=== PATIENT | male | born 1945 | race Caucasian/White ===

== ENCOUNTER 2018-07-23 08:53 | Day surgery (SDC) | payer MEDICARE, OTHER ==
[~2018-07-23] VITALS: Ht 180.3 cm; Wt 66.2 kg
[~2018-07-23 08:53] MED LIST: AMOX1TAB61 PO; ASPI81TA50 PO; FINA5TAB PO; GLIM1TAB2 PO; HYDR-2761 PO; HYDROmorphone 2 MG/ML VIAL IV PRN; INSU100I13 SQ; ISOS30TA4 PO; LEVO50TA5 PO; LIDOCAINE 1% PF 2 ML VIAL. ID PRN; LIDOCAINE 2% PF Vial for OR 5 ML VIAL. ONE; METO50TA29 PO; MORPHINE SULFATE 4 MG/ML VIAL. IV PRN; ONDANSETRON PF 4 MG/2 ML VIAL. IV PRN; PROCHLORPERAZINE 10 MG/2 ML VIAL. IV PRN; PROPOFOL 0 ML IV ONE; SIMV40TA3 PO; TAMS0.4C97 PO; fentaNYL PF VIAL 100 MCG/2 ML VIAL IV PRN
[2018-07-23] MEDS: IV RINGERS,LACTATED 1000ML 1,000 ML IV SCH (09:34)
[2018-07-23] MEDS ORDERED: LIDOCAINE 2% PF Vial for OR 5 ML VIAL. ONE (10:29)
[2018-07-23] MEDS ORDERED: PROPOFOL 20 ML IV ONE (10:29)
[2018-07-23] MEDS ORDERED: DEXAMETHASONE SOD PHOS 20 MG/5 ML VIAL. ONE (10:30)
[2018-07-23] MEDS ORDERED: ONDANSETRON PF 4 MG/2 ML VIAL. ONE (10:30)
[2018-07-23] MEDS ORDERED: fentaNYL PF VIAL 100 MCG/2 ML VIAL ONE (10:33)
[2018-07-23] MEDS ORDERED: MIDAZOLAM HCL/PF 2 MG/2 ML VIAL. ONE (10:33)
[2018-07-23] MEDS: CIPROFLOXACIN 400MG PREMIX 200 ML IV PRN (10:49)
[2018-07-23] MEDS ORDERED: SEVOFLURANE 31 TO 60 MINUTES. IH ONE (11:49)
[2018-07-23] MEDS: LIDOCAINE 2% JELLY 6ML IN APPLICATOR. MM ONE (12:05)
--- NOTE | 2018-07-23 12:16 | PDOC4 ---
OPERATIVE NOTE Date: Date: Jul 23, 2018 Pre-Op Diagnosis: bph w obstruction Post-Op Diagnosis: same Procedure Performed: cysto, laser PVP prostate Surgeon: Anesthesia Type: ga Blood Loss: 5ml Findings: trilobar hypertrophy, 2cm prostate fossa length Complications: none evident SPRING MACK MD Jul 23, 2018 12:15
--- NOTE | 2018-07-23 12:20 | DISCH ---
DISCHARGE INSTRUCTIONS Condition on Discharge Condition on Discharge: Stable Activity After Discharge Activity Instructions for Disc: Activity as tolerated Driving Instructions after Dis: Other, see below (dont drive if taking narcotics) Weight Bearing Status after Di: No restrictions Diet after Discharge Diet after Discharge: Cardiac, Regular, Diabetic No Calorie Level Contacting the after DC Call your doctor for: If your condition worsens Follow-Up Follow up with: dr zuniga in 3 weeks Treatment/Equipment after DC Comment: cath care at home SPRING ZUNIGA MD Jul 23, 2018 12:20
[2018-07-23] MEDS ORDERED: PHEN-318 PO (12:24)
[2018-07-23] MEDS ORDERED: LIDOCAINE 2% JELLY 6ML IN APPLICATOR. ONE ×2 (12:26→12:27)
[2018-07-23] MEDS ORDERED: HYDR-3164 PO (12:44)
--- NOTE | 2018-07-23 12:56 | OP ---
DATE OF SURGERY: PREOPERATIVE DIAGNOSIS: Benign prostatic hypertrophy with obstruction. POSTOPERATIVE DIAGNOSIS: Benign prostatic hypertrophy with obstruction. PROCEDURE: Cystoscopy with GreenLight photo vaporization of the prostate. SURGEON: Deysi Freeman M.D. ANESTHESIA: General. CONDITION: Stable. COMPLICATIONS: None. ESTIMATED BLOOD LOSS: 5 mL. FINDINGS: Tri-lobar hypertrophy, 2 cm prostate fossa length. DESCRIPTION OF PROCEDURE: The patient was taken back to the procedure room and placed under general anesthesia in supine position per the protocol. He was prepped and draped in the usual sterile fashion in dorsal lithotomy position. Time-out was performed. SCDs were attached. IV antibiotics were administered. A 21-Welsh rigid cystoscope was advanced per urethra into the bladder. There was no evidence of anterior or posterior urethra stricture disease. He had tri- lobar hypertrophy with a 2 cm prostate length. There was no evidence of foreign body, stone or tumor. He did have trabeculations noted in the bladder. A 23 continuous flow cystoscope was advanced into the bladder with a working element. A MoXy XPS laser fiber was obtained, 180 rodriguez, and was parked at the bladder neck, 5-7 o'clock positions were marked. Same was done distally proximal to verumontanum. First, I took down the lateral lobes and then the median lobe. At the end of the procedure, the patient had a wide open prostate fossa in the shape of a wide barrel. Pinpoint hemostasis was obtained and a 20-Welsh catheter was placed into the bladder. Hand irrigation revealed no obstructing clots, with no significant hematuria. The patient was awakened and taken to PACU in stable condition. Of note, he had two syringes of urethral lidocaine. The patient will be discharged home today. He will discontinue catheter at home on Saturday. Follow up with me in 3-4 weeks. DEYSI FREEMAN MD DR: MERCY/claudine JOB#: [id number] / [id number]
[2018-07-23 13:40] VITALS: BP 124/76
== END 2018-07-23 13:40 | disposition home or self-care (01) ==
LOC: SURG 08:53
PROVIDERS: ATTEND Urology
DX: N40.1 Benign prostatic hyperplasia with lower urinary tract symptoms (principal); N13.8 Other obstructive and reflux uropathy; N32.89 Other specified disorders of bladder; E11.9 Type 2 diabetes mellitus without complications
CPT/HCPCS: 52648; 82962; A7015; J0744; J1100; J2001; J2250; J2405; J2704; J3010; J7120

== ENCOUNTER 2018-12-25 06:31 | Inpatient (IN) | payer MEDICARE, OTHER ==
[2018-12-25] VITALS (12 sets, daily range): BP systolic 117–140; BP diastolic 70–87
[~2018-12-25] VITALS: Ht 180.3 cm; Wt 70.8 kg
[~2018-12-25 06:31] MED LIST changes: +HYDR-3164 PO; -HYDROmorphone 2 MG/ML VIAL IV PRN; -LIDOCAINE 1% PF 2 ML VIAL. ID PRN; -LIDOCAINE 2% PF Vial for OR 5 ML VIAL. ONE; -MORPHINE SULFATE 4 MG/ML VIAL. IV PRN; -ONDANSETRON PF 4 MG/2 ML VIAL. IV PRN; +PHEN-318 PO; -PROCHLORPERAZINE 10 MG/2 ML VIAL. IV PRN; -PROPOFOL 0 ML IV ONE; -fentaNYL PF VIAL 100 MCG/2 ML VIAL IV PRN
[2018-12-25] MEDS ORDERED: BUPIVAC MPF-EPI 0.5%-1:200000 30 ML VIAL. ONE (07:16)
[2018-12-25] MEDS ORDERED: cefOXitin SODIUM IV Push 2 GM VIAL. IVP SCH (08:00)
[2018-12-25] MEDS ORDERED: IV RINGERS,LACTATED 1000ML 1,000 ML IV SCH (08:02)
[2018-12-25] MEDS ORDERED: ONDANSETRON PF 4 MG/2 ML VIAL. ONE (08:13)
[2018-12-25] MEDS ORDERED: LIDOCAINE 2% PF 5 ML VIAL. ONE (08:13)
[2018-12-25] MEDS ORDERED: DEXAMETHASONE SOD PHOS 20 MG/5 ML VIAL. ONE (08:13)
[2018-12-25] MEDS ORDERED: SUCCINYLCHOLINE 200 MG/10 ML VIAL. ONE (08:13)
[2018-12-25] MEDS ORDERED: ROCURONIUM 50 MG/5 ML VIAL. ONE (08:13)
[2018-12-25] MEDS ORDERED: FAMOTIDINE 20 MG/2 ML VIAL ONE (08:13)
[2018-12-25] MEDS ORDERED: PROPOFOL 20 ML IV ONE (08:13)
[2018-12-25] MEDS ORDERED: fentaNYL PF VIAL 100 MCG/2 ML VIAL ONE ×2 (08:14→12:12)
[2018-12-25] MEDS ORDERED: HYDROmorphone 2 MG/ML VIAL IV PRN (08:15)
[2018-12-25] MEDS ORDERED: LIDOCAINE 1% PF 2 ML VIAL. ID PRN (08:15)
[2018-12-25] MEDS ORDERED: MORPHINE SULFATE 2 MG/ML VIAL. IV PRN (08:15)
[2018-12-25] MEDS ORDERED: cefOXitin SODIUM IV Push 2 GM VIAL. IVP ONE (08:15)
[2018-12-25] MEDS ORDERED: ONDANSETRON PF 4 MG/2 ML VIAL. IV PRN ×2 (08:15→12:15)
[2018-12-25] MEDS ORDERED: fentaNYL PF VIAL 100 MCG/2 ML VIAL IV PRN ×2 (08:15)
[2018-12-25] MEDS ORDERED: PROCHLORPERAZINE 10 MG/2 ML VIAL. IV PRN (08:15)
--- NOTE | 2018-12-25 08:16 | PDOC2 ---
CONSULT Date of Consult Date of Consult DATE: 12/25/18 TIME: 08:09 Reason for Consult Reason for Consult: Pneumoperitoneum Referring Physician Referring Physician: Chidi Identification/Chief Complaint Chief Complaint abd pain Source Source: Chart review, Patient History of Present Illness Reason for Visit: 73 yo M with c/o left knee pain. Previously received cortisone shot, but has still had significant pain. Has been taking ibuprofen. Developed acute onset of abdominal pain at 0030 last night. Presented to ER at [facility]. No previous episodes. High level stress with his becoming more ill. Past Medical History Cardiovascular: HTN, Hyperlipidemia Pulmonary: No pertinent hx CENTRAL NERVOUS SYSTEM: Other GI: No pertinent hx Heme/Onc: No pertinent hx Hepatobiliary: Cholelithiasis Psych: No pertinent hx Musculoskeletal: Osteoarthritis Rheumatologic: No pertinent hx Infectious disease: No pertinent hx Renal/: No pertinent hx Endocrine: Diabetes, Hypothyroidism Past Surgical History Past Surgical History: Cholecystectomy, Other (previous small bowel resection for volvulus) Family History Family History: Other Social History No ALCOHOL: none Drugs: None Lives: with Family Current Medications Current Medications Current Medications Cefoxitin Sodium (Mefoxin) 2 gm 1X PREOP IVP ; Start 12/25/18 at 08:00; Status Cancel Ondansetron HCl (Zofran) 4 mg PRN Q6HRS PRN IV NAUSEA/VOMITING; Start 12/25/18 at 08:15; Stop 12/26/18 at 08:14 Fentanyl Citrate (Fentanyl 2ml Vial) 25 mcg PRN Q5MIN PRN IV MILD PAIN 1-3; Start 12/25/18 at 08:15; Stop 12/26/18 at 08:14 Fentanyl Citrate (Fentanyl 2ml Vial) 50 mcg PRN Q5MIN PRN IV MODERATE TO SEVERE PAIN; Start 12/25/18 at 08:15; Stop 12/26/18 at 08:14 Morphine Sulfate (Morphine Sulfate) 1 mg PRN Q10MIN PRN IV SEVERE PAIN 7-10; Start 12/25/18 at 08:15; Stop 12/26/18 at 08:14 Ringer's Solution 1,000 ml @ 30 mls/hr Q24H IV ; Start 12/25/18 at 08:02; Stop 12/25/18 at 20:01 Lidocaine HCl (Xylocaine-Mpf 1% 2ml Vial) 2 ml PRN 1X PRN ID PRIOR TO IV START; Start 12/25/18 at 08:15; Stop 12/26/18 at 08:14 Hydromorphone HCl (Dilaudid) 0.5 mg PRN Q10MIN PRN IV SEV PAIN, Second choice; Start 12/25/18 at 08:15; Stop 12/26/18 at 08:14 Prochlorperazine Edisylate (Compazine) 5 mg PACU PRN PRN IV NAUSEA, MRX1; Start 12/25/18 at 08:15; Stop 12/26/18 at 08:14 Cefoxitin Sodium (Mefoxin) 2 gm 1X PREOP ONCE IVP ; Start 12/25/18 at 08:15; Stop 12/25/18 at 08:16 Active Scripts Active Pyridium (Phenazopyridine Hcl) 200 Mg Tablet 200 Mg PO TID 7 Days Reported [place] 5-325 Tablet (Acetaminophen/Hydrocodone Bitart) 1 Each Tablet 1 Tab PO PRN Q6HRS PRN LAST DOSE GIVEN: Glimepiride 1 Mg Tablet 1 Mg PO DAILY Proscar (Finasteride) 5 Mg Tablet 5 Mg PO DAILY Flomax (Tamsulosin Hcl) 0.4 Mg Cap.er.24h 0.4 Mg PO DAILY Aspir-Low (Aspirin) 81 Mg Tablet.dr 1 Tab PO DAILY Isosorbide Mononitrate Er (Isosorbide Mononitrate) 30 Mg Tab.er.24h 15 Mg PO DAILY Simvastatin 40 Mg Tablet 1 Tab PO QHS Metoprolol Succinate 50 Mg Tab.er.24h 25 Mg PO Allergies Allergies: Coded Allergies: Penicillins (Verified Allergy, Intermediate, tolerates ZOSYN, 07/23/18) ROS Gastrointestinal: Yes Abdominal Pain Musculoskeletal: Yes Joint Pain Physical Exam General: Alert, Oriented X3, Cooperative, moderate distress HEENT: Atraumatic Lungs: Normal air movement Abdomen: Other (diffuse TTP, well healed midline incision) Extremities: No clubbing, No cyanosis Skin: No rashes, No breakdown Neuro: Normal speech, Sensation intact Psych/Mental Status: Mental status NL, Mood NL Labs Labs labs at [facility] reviewed and essentially unremarkable. Images Images [facility] CT with pneumoperitoneum Assessment/Plan Assessment/Plan Pneumoperitoneum Given PE, hx, CT and normal WBC, favor peptic ulcer perforation from NSAIDs. Regardless, to OR for laparoscopic versus open exploration and repair of perforation. R/R/B/A d/w pt. Risks, including, but not limited to: bleeding, infection, damage to surrounding structures, risk of anesthesia, risk of open, risk of . He appears to understand, his questions are answered and he elects to proceed. Thanks for consult! GREGORY BOYCE MD Dec 25, 2018 08:16
--- NOTE | 2018-12-25 08:30 | NUR ---
The patient, BANDAR PRECIADO, 73 y/o, M admitted by TERRI SYKES MD, was given written information regarding hospital policies, unit procedures and contact persons. This patient arrived via stretcher as a transfer from [facility]. He was then transported to OR.
[2018-12-25] MEDS ORDERED: METOPROLOL TARTRATE 5 MG/5 ML VIAL. IVP ONE (09:07)
[2018-12-25] MEDS ORDERED: NEOSTIGMINE METHYLSULFATE 5 MG/5 ML SYRINGE. ONE (09:28)
[2018-12-25] MEDS ORDERED: GLYCOPYRROLATE 1 MG/5 ML VIAL. ONE (09:28)
[2018-12-25] MEDS ORDERED: HYDROmorphone 2 MG/ML VIAL ONE (09:57)
[2018-12-25] MEDS ORDERED: VECURONIUM BOLUS 10 MG VIAL. IV ONE (10:06)
[2018-12-25] MEDS ORDERED: SEVOFLURANE > 120 MINUTES. IH ONE (10:08)
[2018-12-25] MEDS ORDERED: cefOXitin SODIUM IV Push 1 GM VIAL. IVP ONE (11:21)
[2018-12-25] MEDS: IV RINGERS,LACTATED 1000ML 1,000 ML IV SCH ×2 (12:13→22:13)
[2018-12-25] MEDS ORDERED: NALOXONE 0.4 MG/ML VIAL. IV PRN (12:15)
[2018-12-25] MEDS ORDERED: 0.9 % SODIUM CHLORIDE 10 ML DISP.SYRIN. IV PRN (12:15)
--- NOTE | 2018-12-25 12:27 | PDOC4 ---
OPERATIVE NOTE Date: Date: Dec 25, 2018 Pre-Op Diagnosis: Perforated viscous, pneumoperitoneum Post-Op Diagnosis: same, perforated duodenal ulcer Procedure Performed: Laparoscopic converted to open exploratory laparotomy, lysis of adhesions, nighat patch repair of duodenal ulcer Surgeon: Ray Boyce Anesthesia Type: GETA plus local Blood Loss: 100 Specimans Obtained: none Findings: adhesions, perforated duodenal ulcer posteriorly of the junction of 1st and 2nd portion of duodenum, no palpable mass Complications: none Operative Note: After obtaining informed consent, patient was taken to OR, induced under GETA and prepped in the usual fashion. 5 mm ports placed LUQ x 2, RLQ, all under laparoscopic guidance. Abdominal cavity was explored. Multiple adhesions noted in middle of abdomen. These were taken down sharply using endoshears. An obvious perforated was not noted. Some debris noted under left lobe of liver. Given this finding, open procedure was elected. Midline incision was made with cautery. Extensive adhesions were taken down throughout. Small bowel was run from ligament of treitz to terminal ileum. Evidence of previous small bowel anastomosis which was patent. Small bowel otherwise unremarkable. Appendix was normal. Colon normal throughout, although somewhat redundant. Stomach was normal. Anterior aspect of duodenum was normal. Adhesion of duodenum to gallbladder fossa noted and concern for ulcer in this area. This adhesion was taken down carefully. Common bile duct and clips on cystic duct identified and maintained without injury. Duodenum kocherized. An obvious perforation not identified. Lesser sac entered with ligasure on omentum. This demonstrated debris. A folding of the 1st and 2nd portion of the duodenum was noted. This was carefully opened up, demonstrating a perforated ulcer. This was repaired with 3 0 vicryls. A segment of omentum was prepared and nighat patch performed. Copious irrigation. No evidence of bleeding or other pathology noted. Fascia repaired with 0 looped PDS x 2. Skin repaired with 3 0 vicryl and 4 0 monocry. Dressing placed. Patient tolerated procedure well and sent to PACU in stable condition. All counts correct. Wound class is 4, dirty. GREGORY BOYCE MD Dec 25, 2018 12:27
[2018-12-25] MEDS ORDERED: ceFAZolin SODIUM 1 GM in IV DEXTROSE 5% 50 ML IV SCH (12:30)
[2018-12-25] MEDS: MORPHINE SULFATE/PF 30 ML IV PRN (12:50)
--- NOTE | 2018-12-25 13:43 | NUR ---
SS following for discharge planning. SS reviewed pt chart. Pt is from home with spouse and is currently requiring oxygen. No discharge needs noted at this time. SS will continue to follow for discharge planning.
--- NOTE | 2018-12-25 14:22 | HP ---
ADMIT DATE: 12/25/2018 HISTORY OF PRESENT ILLNESS: The patient is a 73-year-old male patient who presented to the Emergency Room of [facility] with complaint of severe abdominal pain that came all of a sudden and he was evaluated in the Emergency Room for generalized abdominal pain with localization to the epigastric area. He stated that he had a bowel movement about 24 hour ago; however, he denied any trauma or bad food. No recent travel or ill contact. He has a history before of small-bowel obstruction, surgery in 11/2017, for which he underwent exploratory laparotomy and resection. He also had history of cholecystectomy. He has had lab work, the lab work was unremarkable; however, his acute abdomen series showed there is retained stool, greater on the right colon. There is no lung infiltrate, pleural fluid, and no significant free air is identified in the hemidiaphragm by radiography. However, his CT scan of the abdomen and pelvis showed that there is intraperitoneal free air and free fluid identified. This raised the concern for perforated viscus. There is some edema seen adjacent to the stomach and duodenum, therefore, cause such as perforated ulcer is consideration, some of the air is also seen adjacent to the colon. However, adjacent colon does not appear grossly inflamed. The patient also has wall thickening of the urinary bladder, could be a chronic finding secondary to cholecystitis, and apparently Dr. Castaneda was contacted and the patient was admitted to [facility] for surgical consultation and for definitive surgical treatment. PAST MEDICAL HISTORY: Significant for hypertension, hyperlipidemia, coronary artery disease, status post PCI with stent deployment, has also benign prostatic hypertrophy, has had a history of pancreatitis indicating his cholecystectomy. PAST SURGICAL HISTORY: Significant for cholecystectomy and was found to have a bowel obstruction, partial in nature. ALLERGIES: He is allergic to PENICILLIN. MEDICATIONS: He is currently on tamsulosin 0.4 mg daily, simvastatin 40 mg at bedtime, isosorbide mononitrate 30 mg once a day, metoprolol succinate 25 mg once a day, aspirin 81 mg once a day, hydrocodone/APAP 5/325 one tablet every 6 hours, glimepiride 1 mg daily, phenazopyridine 200 mg 3 times a day, and finasteride or Proscar 5 mg daily. FAMILY HISTORY: Noncontributory. SOCIAL HISTORY: He is , lives with his , who apparently has multiple sclerosis. He does not smoke, drink alcohol or use any recreational drugs. REVIEW OF SYSTEMS: As per history of present illness. PHYSICAL EXAMINATION: GENERAL: On arrival to the hospital, the patient looked pale, no jaundice, cyanosis, or thyromegaly. No jugular venous distension. No limb edema. VITAL SIGNS: His heart rate was 78, blood pressure 156/74, temperature was 99.1, respiratory rate was 13 and oxygen saturation was 99% on 2 liters of oxygen. HEAD, EYES, EARS, NOSE AND THROAT: Normocephalic, atraumatic. NECK: Supple. HEART: Showed normal first and second heart sounds. No gallop, rub or murmur. CHEST: Clear to auscultation. No crepitation or rhonchi. ABDOMEN: Distended, soft, nontender with tenderness mostly in the epigastric area. NEUROLOGIC: He was awake, alert, responding appropriately. All cranial nerves are intact. EXTREMITIES: He moves extremities without difficulty. He had a CT scan, which showed he has pneumoperitoneum. He was seen in consultation by Dr. Castaneda who thinks that the patient probably has peptic ulcer perforation from nonsteroidal anti-inflammatory medication and basically decision was made to take him to OR for laparoscopic versus open exploration and repair of the perforation, and in fact, the patient underwent a laparoscopic converted to open exploratory laparotomy, lysis of adhesion, Deven patch repair of duodenal ulcer. Postoperatively, the patient was continued on NG tube to suction, IV fluid and pain medication and GI prophylaxis as well as DVT prophylaxis. He was continued on famotidine 20 mg twice a day, IV fluid, antiemetic and pain management. We will repeat today's lab work tomorrow. Dr. Aragon, Dr. Hinds will follow the patient. TERRI SYKES MD DR: JUSTINA/claudine JOB#: [id number] / [id number]
[2018-12-25] MEDS: ceFAZolin SODIUM IV Push 1 GM VIAL. IVP SCH ×2 (15:02→21:19)
[2018-12-25 15:05] LABS: HEMATOCRIT 42.5 % (39.0-53.0); HEMOGLOBIN 14.7 g/dL (13.0-17.5); RED BLOOD COUNT 4.65 x10^6/uL (4.30-5.70); RED CELL DISTRIBUTION WIDTH 14.3 % (11.5-14.5); WHITE BLOOD COUNT 8.4 x10^3/uL (4.0-11.0)
[2018-12-25] MEDS: IV NORMAL SALINE 1000ML BAG 1,000 ML IV SCH (15:05)
[2018-12-25 15:40] LABS: ALBUMIN 3.4 g/dL (3.4-5.0); ALBUMIN/GLOBULIN RATIO 1.2 (1.0-1.7); CALCIUM 8.8 mg/dL (8.5-10.1); POTASSIUM 4.2 mmol/L (3.5-5.1); TOTAL BILIRUBIN 1.1 mg/dL (0.2-1.0); TOTAL PROTEIN 6.3 g/dL (6.4-8.2)
--- NOTE | 2018-12-25 17:30 | RAD ---
Examination: KUB History: Postop KUB. Exploratory laparotomy. Comparison/Correlation: 11/18/2017 KUB x-ray exam Findings: Frontal view of the abdomen was obtained in the OR. Contrast is noted in the colon. No bowel obstruction. Diverticulosis of the colon is present. No suspicious radiopaque densities. Right upper quadrant surgical clips are present. Enteric tube terminates in the right upper quadrant. Impression: No acute process. No retained foreign bodies identified but evaluation is limited with contrast within the colon. Electronically signed by: Lefty Naik MD (12/25/2018 5:27 PM) [facility]
[2018-12-25] MEDS ORDERED: FAMOTIDINE 20 MG/2 ML VIAL IVP SCH (21:00)
[2018-12-25] MEDS: ENOXAPARIN 40 MG/0.4 ML SYRINGE. SQ SCH (21:19)
--- NOTE | 2018-12-25 23:31 | NUR ---
Non-administered LR because pt. has entire bag of IVF from day shift still running.
[2018-12-26 03:00] VITALS: BP 124/81
[2018-12-26 04:39] LABS: BASO % 0 % (0-3); EOS % 0 % (0-3); HEMATOCRIT 42.5 % (39.0-53.0); HEMOGLOBIN 14.4 g/dL (13.0-17.5); LYMPH # 1.7 x10^3/uL (1.0-4.8); LYMPH % 18 % (24-48); MEAN CORPUSCULAR HEMOGLOBIN 31 pg (25-35); MEAN CORPUSCULAR HGB CONC 34 g/dL (31-37); MEAN CORPUSCULAR VOLUME 91 fL (79-100); MONO # 0.9 x10^3/uL (0.0-1.1); MONO % 9 % (0-9); NEUT # 7.2 x10^3/uL (1.8-7.7); NEUT % 74 % (31-73); PLATELET COUNT 128 x10^3/uL (140-400); RED BLOOD COUNT 4.65 x10^6/uL (4.30-5.70); RED CELL DISTRIBUTION WIDTH 14.7 % (11.5-14.5); WHITE BLOOD COUNT 9.9 x10^3/uL (4.0-11.0)
[2018-12-26 04:53] LABS: CALCIUM 8.8 mg/dL (8.5-10.1); POTASSIUM 3.9 mmol/L (3.5-5.1)
[2018-12-26] MEDS: ceFAZolin SODIUM IV Push 1 GM VIAL. IVP SCH ×3 (05:34→20:43)
[2018-12-26 07:00] VITALS: BP 117/71
--- NOTE | 2018-12-26 08:02 | PDOC ---
SURGICAL PROGRESS NOTE Subjective Pt feels better then preop Vital Signs Vital Signs Date Time Temp Pulse Resp B/P (MAP) Pulse Ox O2 Delivery O2 Flow Rate FiO2 12/26/18 03:00 98.8 79 18 124/81 (95) 97 Room Air 98.8 12/25/18 20:00 2.0 I&O Intake and Output 12/26/18 06:59 Intake Total 1500 ml Output Total 2203 ml Balance -703 ml Intake Oral 0 ml IV Total 1500 ml Output Urine Total 2103 ml Estimated Blood Loss 100 ml # Voids 101 General: Alert, Oriented X3, Cooperative, No acute distress Abdomen: Soft, No tenderness, Other (dressing c/d/i) Labs Laboratory Tests Test 12/25/18 12:36 12/25/18 14:50 12/25/18 17:00 12/26/18 04:05 Glucose (Fingerstick) 167 mg/dL (70-99) 157 mg/dL (70-99) White Blood Count 8.4 x10^3/uL (4.0-11.0) 9.9 x10^3/uL (4.0-11.0) Red Blood Count 4.65 x10^6/uL (4.30-5.70) 4.65 x10^6/uL (4.30-5.70) Hemoglobin 14.7 g/dL (13.0-17.5) 14.4 g/dL (13.0-17.5) Hematocrit 42.5 % (39.0-53.0) 42.5 % (39.0-53.0) Mean Corpuscular Volume 91 fL (79-100) 91 fL (79-100) Mean Corpuscular Hemoglobin 32 pg (25-35) 31 pg (25-35) Mean Corpuscular Hemoglobin Concent 35 g/dL (31-37) 34 g/dL (31-37) Red Cell Distribution Width 14.3 % (11.5-14.5) 14.7 % (11.5-14.5) Platelet Count 124 x10^3/uL (140-400) 128 x10^3/uL (140-400) Sodium Level 138 mmol/L (136-145) 138 mmol/L (136-145) Potassium Level 4.2 mmol/L (3.5-5.1) 3.9 mmol/L (3.5-5.1) Chloride Level 104 mmol/L (98-107) 105 mmol/L (98-107) Carbon Dioxide Level 27 mmol/L (21-32) 26 mmol/L (21-32) Anion Gap 7 (6-14) 7 (6-14) Blood Urea Nitrogen 17 mg/dL (8-26) 17 mg/dL (8-26) Creatinine 1.0 mg/dL (0.7-1.3) 1.0 mg/dL (0.7-1.3) Estimated GFR (Cockcroft-Gault) 73.0 73.0 BUN/Creatinine Ratio 17 (6-20) Glucose Level 166 mg/dL (70-99) 144 mg/dL (70-99) Calcium Level 8.8 mg/dL (8.5-10.1) 8.8 mg/dL (8.5-10.1) Total Bilirubin 1.1 mg/dL (0.2-1.0) Aspartate Amino Transf (AST/SGOT) 60 U/L (15-37) Alanine Aminotransferase (ALT/SGPT) 85 U/L (16-63) Alkaline Phosphatase 47 U/L (46-116) Total Protein 6.3 g/dL (6.4-8.2) Albumin 3.4 g/dL (3.4-5.0) Albumin/Globulin Ratio 1.2 (1.0-1.7) Neutrophils (%) (Auto) 74 % (31-73) Lymphocytes (%) (Auto) 18 % (24-48) Monocytes (%) (Auto) 9 % (0-9) Eosinophils (%) (Auto) 0 % (0-3) Basophils (%) (Auto) 0 % (0-3) Neutrophils # (Auto) 7.2 x10^3/uL (1.8-7.7) Lymphocytes # (Auto) 1.7 x10^3/uL (1.0-4.8) Monocytes # (Auto) 0.9 x10^3/uL (0.0-1.1) Eosinophils # (Auto) 0.0 x10^3/uL (0.0-0.7) Basophils # (Auto) 0.0 x10^3/uL (0.0-0.2) Test 12/26/18 07:50 Glucose (Fingerstick) 137 mg/dL (70-99) Laboratory Tests Test 12/25/18 12:36 12/25/18 14:50 12/25/18 17:00 12/26/18 04:05 Glucose (Fingerstick) 167 mg/dL (70-99) 157 mg/dL (70-99) White Blood Count 8.4 x10^3/uL (4.0-11.0) 9.9 x10^3/uL (4.0-11.0) Red Blood Count 4.65 x10^6/uL (4.30-5.70) 4.65 x10^6/uL (4.30-5.70) Hemoglobin 14.7 g/dL (13.0-17.5) 14.4 g/dL (13.0-17.5) Hematocrit 42.5 % (39.0-53.0) 42.5 % (39.0-53.0) Mean Corpuscular Volume 91 fL (79-100) 91 fL (79-100) Mean Corpuscular Hemoglobin 32 pg (25-35) 31 pg (25-35) Mean Corpuscular Hemoglobin Concent 35 g/dL (31-37) 34 g/dL (31-37) Red Cell Distribution Width 14.3 % (11.5-14.5) 14.7 % (11.5-14.5) Platelet Count 124 x10^3/uL (140-400) 128 x10^3/uL (140-400) Sodium Level 138 mmol/L (136-145) 138 mmol/L (136-145) Potassium Level 4.2 mmol/L (3.5-5.1) 3.9 mmol/L (3.5-5.1) Chloride Level 104 mmol/L (98-107) 105 mmol/L (98-107) Carbon Dioxide Level 27 mmol/L (21-32) 26 mmol/L (21-32) Anion Gap 7 (6-14) 7 (6-14) Blood Urea Nitrogen 17 mg/dL (8-26) 17 mg/dL (8-26) Creatinine 1.0 mg/dL (0.7-1.3) 1.0 mg/dL (0.7-1.3) Estimated GFR (Cockcroft-Gault) 73.0 73.0 BUN/Creatinine Ratio 17 (6-20) Glucose Level 166 mg/dL (70-99) 144 mg/dL (70-99) Calcium Level 8.8 mg/dL (8.5-10.1) 8.8 mg/dL (8.5-10.1) Total Bilirubin 1.1 mg/dL (0.2-1.0) Aspartate Amino Transf (AST/SGOT) 60 U/L (15-37) Alanine Aminotransferase (ALT/SGPT) 85 U/L (16-63) Alkaline Phosphatase 47 U/L (46-116) Total Protein 6.3 g/dL (6.4-8.2) Albumin 3.4 g/dL (3.4-5.0) Albumin/Globulin Ratio 1.2 (1.0-1.7) Neutrophils (%) (Auto) 74 % (31-73) Lymphocytes (%) (Auto) 18 % (24-48) Monocytes (%) (Auto) 9 % (0-9) Eosinophils (%) (Auto) 0 % (0-3) Basophils (%) (Auto) 0 % (0-3) Neutrophils # (Auto) 7.2 x10^3/uL (1.8-7.7) Lymphocytes # (Auto) 1.7 x10^3/uL (1.0-4.8) Monocytes # (Auto) 0.9 x10^3/uL (0.0-1.1) Eosinophils # (Auto) 0.0 x10^3/uL (0.0-0.7) Basophils # (Auto) 0.0 x10^3/uL (0.0-0.2) Test 12/26/18 07:50 Glucose (Fingerstick) 137 mg/dL (70-99) Problem List Problems Medical Problems: (1) Perforated duodenal ulcer Status: Acute (2) Pneumoperitoneum Status: Acute Assessment/Plan s/p duodenal ulcer repair d/c humera and GREGORY Carreno MD Dec 26, 2018 08:02
[2018-12-26] MEDS: IV RINGERS,LACTATED 1000ML 1,000 ML IV SCH ×2 (08:13→18:13)
--- NOTE | 2018-12-26 09:31 | PDOC ---
IM PROGRESS NOTES- Subjective Subjective Has some abdominal pain. Objective Vitals/I&O Vital Signs Date Time Temp Pulse Resp B/P (MAP) Pulse Ox O2 Delivery O2 Flow Rate FiO2 12/26/18 07:00 97.4 76 17 117/71 (86) 96 Room Air 97.4 12/25/18 20:00 2.0 I & O 12/25/18 12/25/18 12/26/18 15:00 23:00 07:00 Intake Total 1500 ml Output Total 701 ml 452 ml 1050 ml Balance 799 ml -452 ml -1050 ml Physical Exam Physical Exam General appearance - alert,well appearing, and in no distress and oriented to person, place, and time Mental Status - alert, oriented to person, place, and time, affect appropriate to mood Head - normal Chest - clear to auscultation, no wheezes, rales or rhonchi, symmetric air entry Heart - S1 and S2 normal Abdomen - soft, dressing in place Neurological - alert and oriented Musculoskeletal - no muscular tenderness noted Extremities - no pedal edema Skin - warm and dry Labs Laboratory Tests Test 12/25/18 12:36 12/25/18 14:50 12/25/18 17:00 12/26/18 04:05 Glucose (Fingerstick) 167 mg/dL (70-99) H 157 mg/dL (70-99) H White Blood Count 8.4 x10^3/uL (4.0-11.0) 9.9 x10^3/uL (4.0-11.0) Red Blood Count 4.65 x10^6/uL (4.30-5.70) 4.65 x10^6/uL (4.30-5.70) Hemoglobin 14.7 g/dL (13.0-17.5) 14.4 g/dL (13.0-17.5) Hematocrit 42.5 % (39.0-53.0) 42.5 % (39.0-53.0) Mean Corpuscular Volume 91 fL (79-100) 91 fL (79-100) Mean Corpuscular Hemoglobin 32 pg (25-35) 31 pg (25-35) Mean Corpuscular Hemoglobin Concent 35 g/dL (31-37) 34 g/dL (31-37) Red Cell Distribution Width 14.3 % (11.5-14.5) 14.7 % (11.5-14.5) H Platelet Count 124 x10^3/uL (140-400) L 128 x10^3/uL (140-400) L Sodium Level 138 mmol/L (136-145) 138 mmol/L (136-145) Potassium Level 4.2 mmol/L (3.5-5.1) 3.9 mmol/L (3.5-5.1) Chloride Level 104 mmol/L (98-107) 105 mmol/L (98-107) Carbon Dioxide Level 27 mmol/L (21-32) 26 mmol/L (21-32) Anion Gap 7 (6-14) 7 (6-14) Blood Urea Nitrogen 17 mg/dL (8-26) 17 mg/dL (8-26) Creatinine 1.0 mg/dL (0.7-1.3) 1.0 mg/dL (0.7-1.3) Estimated GFR (Cockcroft-Gault) 73.0 73.0 BUN/Creatinine Ratio 17 (6-20) Glucose Level 166 mg/dL (70-99) H 144 mg/dL (70-99) H Calcium Level 8.8 mg/dL (8.5-10.1) 8.8 mg/dL (8.5-10.1) Total Bilirubin 1.1 mg/dL (0.2-1.0) H Aspartate Amino Transferase (AST) 60 U/L (15-37) H Alanine Aminotransferase (ALT) 85 U/L (16-63) H Alkaline Phosphatase 47 U/L (46-116) Total Protein 6.3 g/dL (6.4-8.2) L Albumin 3.4 g/dL (3.4-5.0) Albumin/Globulin Ratio 1.2 (1.0-1.7) Neutrophils (%) (Auto) 74 % (31-73) H Lymphocytes (%) (Auto) 18 % (24-48) L Monocytes (%) (Auto) 9 % (0-9) Eosinophils (%) (Auto) 0 % (0-3) Basophils (%) (Auto) 0 % (0-3) Neutrophils # (Auto) 7.2 x10^3/uL (1.8-7.7) Lymphocytes # (Auto) 1.7 x10^3/uL (1.0-4.8) Monocytes # (Auto) 0.9 x10^3/uL (0.0-1.1) Eosinophils # (Auto) 0.0 x10^3/uL (0.0-0.7) Basophils # (Auto) 0.0 x10^3/uL (0.0-0.2) Test 12/26/18 07:50 Glucose (Fingerstick) 137 mg/dL (70-99) H Laboratory Tests 12/25/18 14:50 12/26/18 04:05 Laboratory Tests 12/25/18 14:50 12/26/18 04:05 Meds Current Medications Medications (Trade) Dose Ordered Sig/Ace Route PRN Reason Start Time Stop Time Status Last Admin Dose Admin Famotidine (Pepcid Vial) 20 mg BID IVP 12/25/18 21:00 12/25/18 21:18 Enoxaparin Sodium (Lovenox 40mg Syringe) 40 mg Q24H SQ 12/25/18 22:00 12/25/18 21:19 Sodium Chloride 1,000 ml @ 25 mls/hr Q24H IV 12/25/18 12:13 12/25/18 15:05 Morphine Sulfate 30 ml @ 0 mls/hr CONT PRN PRN IV PER PROTOCOL 12/25/18 12:15 12/25/18 12:50 Cefazolin Sodium (Ancef) 1 gm Q8HRS IVP 12/25/18 14:00 12/26/18 05:34 Assessment Assessment Perforated duodenal ulcer- to Dominique consulted. Patient had Laparoscopy converted to open exploratory laparotomy, lysis of adhesions, nighat patch repair of duodenal ulcer Hypertension Anemia Elevated LFTs plan- continue nothing by mouth. IV fluids. Recheck labs in a.m. GI consult with Dr. Hardy Jeffrey. PPI Plan Plan For more details regarding further plans, please refer to the orders. ANABELA JENSEN MD Dec 26, 2018 09:31
[2018-12-26 11:00] VITALS: BP 125/74
--- NOTE | 2018-12-26 12:38 | PDOC2 ---
GI CONSULT Reason For Consult: Perforated duodenal ulcer HPI: HPI: 73 y/o male w/ h/o RLE/knee pain and CAD on ASA and ibuprofen 2-4 pills daily had sudden onset of severe abd pain while sleeping. CT @ [facility] showed pneumoperitoneum. He was transferred to [facility] and underwent exploratory laparotomy w/ DEBRA and Deven patch repair for perforated duodenal ulcer w/ Dr. Castaneda on 12/25/18. Pain is improved from pre-op and improved w/ pain pump. Plans to remove NG tube and try clear liquids today. Leg pain is better. H/o "indigestion" improved w/ Tums. No dysphagia. No n/v or hematemesis. No chronic abd pain, diarrhea, or constipation. No hematochezia or melena. No previous EGD or colonoscopy. S/p cholecystectomy. No liver history. Chart indicates h/o gallstones pancreatitis - he's not sure. No previous PUD history. H/o SBR w/ DEBRA and Meckel's diverticulectomy. PMH: PMH: CAD, A Fib, HTN, HLD, DM, hypothyroidism cholecystectomy, cardiac stent, SBR w/ DEBRA and Meckel's diverticulectomy FH: Family History: No pertinent hx Social History: Smoke: No ALCOHOL: none Drugs: None ROS: GEN: Denies fevers, chills, sweats HEENT: Denies blurred vision, sore throat CV: Denies chest pain RESP: Denies shortness of air, cough GI: Per HPI : Denies hematuria, dysuria ENDO: Denies weight changes NEURO: Denies confusion, dizziness MSK: RLE pain SKIN: Denies jaundice, pruritus Vitals: Vitals: Vital Signs Date Time Temp Pulse Resp B/P (MAP) Pulse Ox O2 Delivery O2 Flow Rate FiO2 12/26/18 07:00 97.4 76 17 117/71 (86) 96 Room Air 97.4 12/25/18 20:00 2.0 Labs: Labs: Laboratory Tests Test 12/25/18 12:36 12/25/18 14:50 12/25/18 17:00 12/26/18 04:05 Glucose (Fingerstick) 167 mg/dL (70-99) 157 mg/dL (70-99) White Blood Count 8.4 x10^3/uL (4.0-11.0) 9.9 x10^3/uL (4.0-11.0) Red Blood Count 4.65 x10^6/uL (4.30-5.70) 4.65 x10^6/uL (4.30-5.70) Hemoglobin 14.7 g/dL (13.0-17.5) 14.4 g/dL (13.0-17.5) Hematocrit 42.5 % (39.0-53.0) 42.5 % (39.0-53.0) Mean Corpuscular Volume 91 fL (79-100) 91 fL (79-100) Mean Corpuscular Hemoglobin 32 pg (25-35) 31 pg (25-35) Mean Corpuscular Hemoglobin Concent 35 g/dL (31-37) 34 g/dL (31-37) Red Cell Distribution Width 14.3 % (11.5-14.5) 14.7 % (11.5-14.5) Platelet Count 124 x10^3/uL (140-400) 128 x10^3/uL (140-400) Sodium Level 138 mmol/L (136-145) 138 mmol/L (136-145) Potassium Level 4.2 mmol/L (3.5-5.1) 3.9 mmol/L (3.5-5.1) Chloride Level 104 mmol/L (98-107) 105 mmol/L (98-107) Carbon Dioxide Level 27 mmol/L (21-32) 26 mmol/L (21-32) Anion Gap 7 (6-14) 7 (6-14) Blood Urea Nitrogen 17 mg/dL (8-26) 17 mg/dL (8-26) Creatinine 1.0 mg/dL (0.7-1.3) 1.0 mg/dL (0.7-1.3) Estimated GFR (Cockcroft-Gault) 73.0 73.0 BUN/Creatinine Ratio 17 (6-20) Glucose Level 166 mg/dL (70-99) 144 mg/dL (70-99) Calcium Level 8.8 mg/dL (8.5-10.1) 8.8 mg/dL (8.5-10.1) Total Bilirubin 1.1 mg/dL (0.2-1.0) Aspartate Amino Transf (AST/SGOT) 60 U/L (15-37) Alanine Aminotransferase (ALT/SGPT) 85 U/L (16-63) Alkaline Phosphatase 47 U/L (46-116) Total Protein 6.3 g/dL (6.4-8.2) Albumin 3.4 g/dL (3.4-5.0) Albumin/Globulin Ratio 1.2 (1.0-1.7) Neutrophils (%) (Auto) 74 % (31-73) Lymphocytes (%) (Auto) 18 % (24-48) Monocytes (%) (Auto) 9 % (0-9) Eosinophils (%) (Auto) 0 % (0-3) Basophils (%) (Auto) 0 % (0-3) Neutrophils # (Auto) 7.2 x10^3/uL (1.8-7.7) Lymphocytes # (Auto) 1.7 x10^3/uL (1.0-4.8) Monocytes # (Auto) 0.9 x10^3/uL (0.0-1.1) Eosinophils # (Auto) 0.0 x10^3/uL (0.0-0.7) Basophils # (Auto) 0.0 x10^3/uL (0.0-0.2) Test 12/26/18 07:50 12/26/18 11:42 Glucose (Fingerstick) 137 mg/dL (70-99) 110 mg/dL (70-99) Allergies: Coded Allergies: Penicillins (Verified Allergy, Intermediate, tolerates ZOSYN, 07/23/18) Medications: Current Medications Medications (Trade) Dose Ordered Sig/Ace Route PRN Reason Start Time Stop Time Status Last Admin Dose Admin Famotidine (Pepcid Vial) 20 mg BID IVP 12/25/18 21:00 12/26/18 09:34 DC 12/25/18 21:18 Enoxaparin Sodium (Lovenox 40mg Syringe) 40 mg Q24H SQ 12/25/18 22:00 12/25/18 21:19 Cefazolin Sodium (Ancef) 1 gm Q8HRS IVP 12/25/18 14:00 12/26/18 05:34 Imaging: Imaging: KUB 12/25/18 Impression: No acute process. No retained foreign bodies identified but evaluation is limited with contrast within the colon. PE: GEN: NAD HEENT: Atraumatic, PERRL LUNGS: NC HEART: RRR ABD: a few gurgles, soft, tender EXTREMITY: No edema SKIN: No rashes, no jaundice NEURO/PSYCH: A & O �3 A/P: A/P: S/p repair of perforated duodenal ulcer H/o indigestion Elevated LFTs CRC screen - none S/p cholecystectomy, ?h/o GS pancreatitis H/o knee pain and CAD w/ NSAID and ASA use -- Agree w/ PPI, can transition to PO when reliably eating. Diet per surgery. Follow-up for outpt EGD down the road, hopefully will consider screening col onoscopy as well. Monitor LFTs. Future knee pain treatment per primary. YUDY SINGH Dec 26, 2018 12:38
[2018-12-26] MEDS: IV NORMAL SALINE 1000ML BAG 1,000 ML IV SCH (13:24)
[2018-12-26] MEDS: PANTOPRAZOLE IV PUSH 40 MG VIAL. IVP SCH ×2 (13:24→17:15)
[2018-12-26 15:00] VITALS: BP 118/69
[2018-12-26] MEDS: MORPHINE SULFATE/PF 30 ML IV PRN (17:28)
[2018-12-26 19:00] VITALS: BP 126/81
[2018-12-26] MEDS: LACTOBACILLUS RHAMNOSUS GG 1 CAPSULE. PO SCH (20:44)
[2018-12-26] MEDS: ENOXAPARIN 40 MG/0.4 ML SYRINGE. SQ SCH (20:44)
[2018-12-26 23:00] VITALS: BP 129/82
[2018-12-27 03:00] VITALS: BP 141/92
[2018-12-27 05:32] LABS: BASO % 0 % (0-3); EOS # 0.1 x10^3/uL (0.0-0.7); EOS % 1 % (0-3); HEMATOCRIT 40.6 % (39.0-53.0); HEMOGLOBIN 14.2 g/dL (13.0-17.5); LYMPH # 1.7 x10^3/uL (1.0-4.8); LYMPH % 25 % (24-48); MEAN CORPUSCULAR HEMOGLOBIN 32 pg (25-35); MEAN CORPUSCULAR HGB CONC 35 g/dL (31-37); MEAN CORPUSCULAR VOLUME 91 fL (79-100); MONO # 0.7 x10^3/uL (0.0-1.1); MONO % 10 % (0-9); NEUT # 4.4 x10^3/uL (1.8-7.7); NEUT % 64 % (31-73); PLATELET COUNT 127 x10^3/uL (140-400); RED BLOOD COUNT 4.48 x10^6/uL (4.30-5.70); RED CELL DISTRIBUTION WIDTH 14.5 % (11.5-14.5); WHITE BLOOD COUNT 6.8 x10^3/uL (4.0-11.0)
[2018-12-27 05:49] LABS: ALBUMIN 2.9 g/dL (3.4-5.0); ALBUMIN/GLOBULIN RATIO 0.9 (1.0-1.7); CALCIUM 8.6 mg/dL (8.5-10.1); CREATININE 0.8 mg/dL (0.7-1.3); GFR 94.5; POTASSIUM 3.6 mmol/L (3.5-5.1); TOTAL BILIRUBIN 0.7 mg/dL (0.2-1.0); TOTAL PROTEIN 6.1 g/dL (6.4-8.2)
[2018-12-27] MEDS: ceFAZolin SODIUM IV Push 1 GM VIAL. IVP SCH ×3 (05:55→21:48)
[2018-12-27] MEDS: PANTOPRAZOLE IV PUSH 40 MG VIAL. IVP SCH ×2 (05:55→16:22)
[2018-12-27] MEDS: IV RINGERS,LACTATED 1000ML 1,000 ML IV SCH (05:56)
[2018-12-27] MEDS: MORPHINE SULFATE/PF 30 ML IV PRN (06:23)
[2018-12-27 07:00] VITALS: BP 139/75
--- NOTE | 2018-12-27 07:30 | NUR ---
This nurse paged MD for orders regarding patient's HR, and concerns. Orders received, this nurse will continue to monitor.
--- NOTE | 2018-12-27 07:57 | EKG ---
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
[2018-12-27] MEDS: LACTOBACILLUS RHAMNOSUS GG 1 CAPSULE. PO SCH ×2 (09:15→20:48)
--- NOTE | 2018-12-27 09:30 | NUR ---
This nurse paged MD, and cardiology to get orders to transfer patient. Orders received, supervisor rides notified.
--- NOTE | 2018-12-27 10:10 | NUR ---
This nurse called report to Keon, 2S, patient is being transferred to [facility]. All patient belongings were collected and transported by this nurse, and JUAQUIN Welsh. Informed Keon of patient needing home medications restarted, I/S, and discussed surgical dressing with Dr. Mohamud. This nurse will continue to assist with this patient as needed.
--- NOTE | 2018-12-27 10:14 | PDOC ---
SURGICAL PROGRESS NOTE Subjective Cade for Dr Castaneda no complaints tolerating clears good pain control Vital Signs Vital Signs Date Time Temp Pulse Resp B/P (MAP) Pulse Ox O2 Delivery O2 Flow Rate FiO2 12/27/18 07:00 98.0 66 18 139/75 (96) 96 Room Air 98.0 12/27/18 06:23 2.0 I&O Intake and Output 12/27/18 07:00 Intake Total 1480 ml Output Total 550 ml Balance 930 ml Intake Oral 1480 ml Output Urine Total 450 ml Gastric Drainage Total 100 ml PATIENT HAS A ZUNIGA: No General: Alert, Oriented X3, No acute distress Abdomen: Soft, Other (dressings dry) Labs Laboratory Tests Test 12/25/18 12:36 12/25/18 14:50 12/25/18 17:00 12/25/18 21:30 Glucose (Fingerstick) 167 mg/dL (70-99) 157 mg/dL (70-99) 163 mg/dL (70-99) White Blood Count 8.4 x10^3/uL (4.0-11.0) Red Blood Count 4.65 x10^6/uL (4.30-5.70) Hemoglobin 14.7 g/dL (13.0-17.5) Hematocrit 42.5 % (39.0-53.0) Mean Corpuscular Volume 91 fL (79-100) Mean Corpuscular Hemoglobin 32 pg (25-35) Mean Corpuscular Hemoglobin Concent 35 g/dL (31-37) Red Cell Distribution Width 14.3 % (11.5-14.5) Platelet Count 124 x10^3/uL (140-400) Sodium Level 138 mmol/L (136-145) Potassium Level 4.2 mmol/L (3.5-5.1) Chloride Level 104 mmol/L (98-107) Carbon Dioxide Level 27 mmol/L (21-32) Anion Gap 7 (6-14) Blood Urea Nitrogen 17 mg/dL (8-26) Creatinine 1.0 mg/dL (0.7-1.3) Estimated GFR (Cockcroft-Gault) 73.0 BUN/Creatinine Ratio 17 (6-20) Glucose Level 166 mg/dL (70-99) Calcium Level 8.8 mg/dL (8.5-10.1) Total Bilirubin 1.1 mg/dL (0.2-1.0) Aspartate Amino Transf (AST/SGOT) 60 U/L (15-37) Alanine Aminotransferase (ALT/SGPT) 85 U/L (16-63) Alkaline Phosphatase 47 U/L (46-116) Total Protein 6.3 g/dL (6.4-8.2) Albumin 3.4 g/dL (3.4-5.0) Albumin/Globulin Ratio 1.2 (1.0-1.7) Test 12/26/18 04:05 12/26/18 07:50 12/26/18 11:42 12/26/18 16:45 White Blood Count 9.9 x10^3/uL (4.0-11.0) Red Blood Count 4.65 x10^6/uL (4.30-5.70) Hemoglobin 14.4 g/dL (13.0-17.5) Hematocrit 42.5 % (39.0-53.0) Mean Corpuscular Volume 91 fL (79-100) Mean Corpuscular Hemoglobin 31 pg (25-35) Mean Corpuscular Hemoglobin Concent 34 g/dL (31-37) Red Cell Distribution Width 14.7 % (11.5-14.5) Platelet Count 128 x10^3/uL (140-400) Neutrophils (%) (Auto) 74 % (31-73) Lymphocytes (%) (Auto) 18 % (24-48) Monocytes (%) (Auto) 9 % (0-9) Eosinophils (%) (Auto) 0 % (0-3) Basophils (%) (Auto) 0 % (0-3) Neutrophils # (Auto) 7.2 x10^3/uL (1.8-7.7) Lymphocytes # (Auto) 1.7 x10^3/uL (1.0-4.8) Monocytes # (Auto) 0.9 x10^3/uL (0.0-1.1) Eosinophils # (Auto) 0.0 x10^3/uL (0.0-0.7) Basophils # (Auto) 0.0 x10^3/uL (0.0-0.2) Sodium Level 138 mmol/L (136-145) Potassium Level 3.9 mmol/L (3.5-5.1) Chloride Level 105 mmol/L (98-107) Carbon Dioxide Level 26 mmol/L (21-32) Anion Gap 7 (6-14) Blood Urea Nitrogen 17 mg/dL (8-26) Creatinine 1.0 mg/dL (0.7-1.3) Estimated GFR (Cockcroft-Gault) 73.0 Glucose Level 144 mg/dL (70-99) Calcium Level 8.8 mg/dL (8.5-10.1) Glucose (Fingerstick) 137 mg/dL (70-99) 110 mg/dL (70-99) 126 mg/dL (70-99) Test 12/26/18 20:18 12/27/18 05:10 12/27/18 07:24 12/27/18 09:41 Glucose (Fingerstick) 179 mg/dL (70-99) 115 mg/dL (70-99) 132 mg/dL (70-99) White Blood Count 6.8 x10^3/uL (4.0-11.0) Red Blood Count 4.48 x10^6/uL (4.30-5.70) Hemoglobin 14.2 g/dL (13.0-17.5) Hematocrit 40.6 % (39.0-53.0) Mean Corpuscular Volume 91 fL (79-100) Mean Corpuscular Hemoglobin 32 pg (25-35) Mean Corpuscular Hemoglobin Concent 35 g/dL (31-37) Red Cell Distribution Width 14.5 % (11.5-14.5) Platelet Count 127 x10^3/uL (140-400) Neutrophils (%) (Auto) 64 % (31-73) Lymphocytes (%) (Auto) 25 % (24-48) Monocytes (%) (Auto) 10 % (0-9) Eosinophils (%) (Auto) 1 % (0-3) Basophils (%) (Auto) 0 % (0-3) Neutrophils # (Auto) 4.4 x10^3/uL (1.8-7.7) Lymphocytes # (Auto) 1.7 x10^3/uL (1.0-4.8) Monocytes # (Auto) 0.7 x10^3/uL (0.0-1.1) Eosinophils # (Auto) 0.1 x10^3/uL (0.0-0.7) Basophils # (Auto) 0.0 x10^3/uL (0.0-0.2) Sodium Level 138 mmol/L (136-145) Potassium Level 3.6 mmol/L (3.5-5.1) Chloride Level 105 mmol/L (98-107) Carbon Dioxide Level 27 mmol/L (21-32) Anion Gap 6 (6-14) Blood Urea Nitrogen 16 mg/dL (8-26) Creatinine 0.8 mg/dL (0.7-1.3) Estimated GFR (Cockcroft-Gault) 94.5 BUN/Creatinine Ratio 20 (6-20) Glucose Level 127 mg/dL (70-99) Calcium Level 8.6 mg/dL (8.5-10.1) Total Bilirubin 0.7 mg/dL (0.2-1.0) Aspartate Amino Transf (AST/SGOT) 22 U/L (15-37) Alanine Aminotransferase (ALT/SGPT) 43 U/L (16-63) Alkaline Phosphatase 47 U/L (46-116) Total Protein 6.1 g/dL (6.4-8.2) Albumin 2.9 g/dL (3.4-5.0) Albumin/Globulin Ratio 0.9 (1.0-1.7) Laboratory Tests Test 12/26/18 11:42 12/26/18 16:45 12/26/18 20:18 12/27/18 05:10 Glucose (Fingerstick) 110 mg/dL (70-99) 126 mg/dL (70-99) 179 mg/dL (70-99) White Blood Count 6.8 x10^3/uL (4.0-11.0) Red Blood Count 4.48 x10^6/uL (4.30-5.70) Hemoglobin 14.2 g/dL (13.0-17.5) Hematocrit 40.6 % (39.0-53.0) Mean Corpuscular Volume 91 fL (79-100) Mean Corpuscular Hemoglobin 32 pg (25-35) Mean Corpuscular Hemoglobin Concent 35 g/dL (31-37) Red Cell Distribution Width 14.5 % (11.5-14.5) Platelet Count 127 x10^3/uL (140-400) Neutrophils (%) (Auto) 64 % (31-73) Lymphocytes (%) (Auto) 25 % (24-48) Monocytes (%) (Auto) 10 % (0-9) Eosinophils (%) (Auto) 1 % (0-3) Basophils (%) (Auto) 0 % (0-3) Neutrophils # (Auto) 4.4 x10^3/uL (1.8-7.7) Lymphocytes # (Auto) 1.7 x10^3/uL (1.0-4.8) Monocytes # (Auto) 0.7 x10^3/uL (0.0-1.1) Eosinophils # (Auto) 0.1 x10^3/uL (0.0-0.7) Basophils # (Auto) 0.0 x10^3/uL (0.0-0.2) Sodium Level 138 mmol/L (136-145) Potassium Level 3.6 mmol/L (3.5-5.1) Chloride Level 105 mmol/L (98-107) Carbon Dioxide Level 27 mmol/L (21-32) Anion Gap 6 (6-14) Blood Urea Nitrogen 16 mg/dL (8-26) Creatinine 0.8 mg/dL (0.7-1.3) Estimated GFR (Cockcroft-Gault) 94.5 BUN/Creatinine Ratio 20 (6-20) Glucose Level 127 mg/dL (70-99) Calcium Level 8.6 mg/dL (8.5-10.1) Total Bilirubin 0.7 mg/dL (0.2-1.0) Aspartate Amino Transf (AST/SGOT) 22 U/L (15-37) Alanine Aminotransferase (ALT/SGPT) 43 U/L (16-63) Alkaline Phosphatase 47 U/L (46-116) Total Protein 6.1 g/dL (6.4-8.2) Albumin 2.9 g/dL (3.4-5.0) Albumin/Globulin Ratio 0.9 (1.0-1.7) Test 12/27/18 07:24 12/27/18 09:41 Glucose (Fingerstick) 115 mg/dL (70-99) 132 mg/dL (70-99) Problem List Problems Medical Problems: (1) Perforated duodenal ulcer Status: Acute (2) Pneumoperitoneum Status: Acute Assessment/Plan POD 2 closure perforated ul er advance diet d/c DIRECTOR OF MEDICARE po pain meds TRANG HAAS MD Dec 27, 2018 10:14
--- NOTE | 2018-12-27 10:50 | PDOC ---
IM PROGRESS NOTES- Subjective Subjective Has some abdominal pain. Objective Vitals/I&O Vital Signs Date Time Temp Pulse Resp B/P (MAP) Pulse Ox O2 Delivery O2 Flow Rate FiO2 12/27/18 07:00 98.0 66 18 139/75 (96) 96 Room Air 98.0 12/27/18 06:23 2.0 I & O 12/26/18 12/26/18 12/27/18 15:00 23:00 07:00 Intake Total 720 ml 760 ml Output Total 100 ml 450 ml Balance 620 ml 760 ml -450 ml Physical Exam Physical Exam General appearance - alert,well appearing, and in no distress and oriented to person, place, and time Mental Status - alert, oriented to person, place, and time, affect appropriate to mood Head - normal Chest - clear to auscultation, no wheezes, rales or rhonchi, symmetric air entry Heart - S1 and S2 normal Abdomen - soft, dressing in place Neurological - alert and oriented Musculoskeletal - no muscular tenderness noted Extremities - no pedal edema Skin - warm and dry Labs Laboratory Tests Test 12/26/18 11:42 12/26/18 16:45 12/26/18 20:18 12/27/18 05:10 Glucose (Fingerstick) 110 mg/dL (70-99) H 126 mg/dL (70-99) H 179 mg/dL (70-99) H White Blood Count 6.8 x10^3/uL (4.0-11.0) Red Blood Count 4.48 x10^6/uL (4.30-5.70) Hemoglobin 14.2 g/dL (13.0-17.5) Hematocrit 40.6 % (39.0-53.0) Mean Corpuscular Volume 91 fL (79-100) Mean Corpuscular Hemoglobin 32 pg (25-35) Mean Corpuscular Hemoglobin Concent 35 g/dL (31-37) Red Cell Distribution Width 14.5 % (11.5-14.5) Platelet Count 127 x10^3/uL (140-400) L Neutrophils (%) (Auto) 64 % (31-73) Lymphocytes (%) (Auto) 25 % (24-48) Monocytes (%) (Auto) 10 % (0-9) H Eosinophils (%) (Auto) 1 % (0-3) Basophils (%) (Auto) 0 % (0-3) Neutrophils # (Auto) 4.4 x10^3/uL (1.8-7.7) Lymphocytes # (Auto) 1.7 x10^3/uL (1.0-4.8) Monocytes # (Auto) 0.7 x10^3/uL (0.0-1.1) Eosinophils # (Auto) 0.1 x10^3/uL (0.0-0.7) Basophils # (Auto) 0.0 x10^3/uL (0.0-0.2) Sodium Level 138 mmol/L (136-145) Potassium Level 3.6 mmol/L (3.5-5.1) Chloride Level 105 mmol/L (98-107) Carbon Dioxide Level 27 mmol/L (21-32) Anion Gap 6 (6-14) Blood Urea Nitrogen 16 mg/dL (8-26) Creatinine 0.8 mg/dL (0.7-1.3) Estimated GFR (Cockcroft-Gault) 94.5 BUN/Creatinine Ratio 20 (6-20) Glucose Level 127 mg/dL (70-99) H Calcium Level 8.6 mg/dL (8.5-10.1) Total Bilirubin 0.7 mg/dL (0.2-1.0) Aspartate Amino Transferase (AST) 22 U/L (15-37) Alanine Aminotransferase (ALT) 43 U/L (16-63) Alkaline Phosphatase 47 U/L (46-116) Total Protein 6.1 g/dL (6.4-8.2) L Albumin 2.9 g/dL (3.4-5.0) L Albumin/Globulin Ratio 0.9 (1.0-1.7) L Test 12/27/18 07:24 12/27/18 09:41 Glucose (Fingerstick) 115 mg/dL (70-99) H 132 mg/dL (70-99) H Laboratory Tests 12/27/18 05:10 Laboratory Tests 12/27/18 05:10 Meds Current Medications Medications (Trade) Dose Ordered Sig/Ace Route PRN Reason Start Time Stop Time Status Last Admin Dose Admin Lactobacillus Rhamnosus (Culturelle) 1 cap BID PO 12/26/18 21:00 12/27/18 09:15 Assessment Assessment Perforated duodenal ulcer- to Dominique consulted. Patient had Laparoscopy conv erted to open exploratory laparotomy, lysis of adhesions, nighat patch repair of duodenal ulcer Hypertension Anemia Elevated LFTs plan- continue nothing by mouth. IV fluids. Recheck labs in a.m. GI consult with Dr. Hardy Jeffrey. PPI Hypokalemia-add potassium chloride to IV fluids. Follow-up labs in a.m. Atrial fibrillation- consult cardiology. Transfer to telemetry Plan Plan For more details regarding further plans, please refer to the orders. ANABELA JENSEN MD Dec 27, 2018 10:50
[2018-12-27 11:00] VITALS: BP 139/82
[2018-12-27] MEDS: IV NORMAL SALINE 1000ML BAG 1,000 ML IV SCH (12:10)
[2018-12-27] MEDS: RINGERS LACTATED IV SCH ×2 (12:11→21:48)
[2018-12-27] MEDS: POTASSIUM CHLORIDE IV SCH ×2 (12:11→21:48)
--- NOTE | 2018-12-27 13:25 | PDOC2 ---
CONSULT Date of Consult Date of Consult DATE: 12/27/18 TIME: : Reason for Consult Reason for Consult: Atrial fibrillation Referring Physician Referring Physician: Dr. Aragon Identification/Chief Complaint Chief Complaint Abdominal pain Source Source: Chart review, Patient History of Present Illness Reason for Visit: The patient is a 73-year-old male who was admitted on 12/25/18 for abdominal pain. He was evaluated by the surgical service and went to an exploratory labs with repair of a duodenal ulcer at the same date. Since that day he has been gra dually improving. His abdominal pain has significantly improved. This morning however the patient was found to be in atrial fibrillation with a controlled ventricular response rate. He denies any chest discomfort or lightheadedness. After discussion he states he had some type of a possible rhythm problem 1-2 years ago but was never told he had atrial fibrillation. He is resting fairly comfortably in bed. Past Medical History Cardiovascular: HTN, Hyperlipidemia Pulmonary: No pertinent hx CENTRAL NERVOUS SYSTEM: Other GI: No pertinent hx Heme/Onc: No pertinent hx Hepatobiliary: Cholelithiasis Psych: No pertinent hx Musculoskeletal: Osteoarthritis Rheumatologic: No pertinent hx Infectious disease: No pertinent hx Renal/: No pertinent hx Endocrine: Diabetes, Hypothyroidism Past Surgical History Past Surgical History: Cholecystectomy, Other (coronary stents, previous abdominal surgery) Family History Family History: Hypertension, Other Social History No ALCOHOL: none Drugs: None Lives: with Family Current Problem List Problem List Problems Medical Problems: (1) Perforated duodenal ulcer Status: Acute (2) Pneumoperitoneum Status: Acute Current Medications Current Medications Current Medications Cefoxitin Sodium (Mefoxin) 2 gm 1X PREOP IVP ; Start 12/25/18 at 08:00; Status Cancel Ondansetron HCl (Zofran) 4 mg PRN Q6HRS PRN IV NAUSEA/VOMITING; Start 12/25/18 at 08:15; Stop 12/25/18 at 12:22; Status DC Fentanyl Citrate (Fentanyl 2ml Vial) 25 mcg PRN Q5MIN PRN IV MILD PAIN 1-3; Start 12/25/18 at 08:15; Stop 12/26/18 at 08:14; Status DC Fentanyl Citrate (Fentanyl 2ml Vial) 50 mcg PRN Q5MIN PRN IV MODERATE TO SEVERE PAIN Last administered on 12/25/18at 12:14; Start 12/25/18 at 08:15; Stop 12/26/18 at 08:14; Status DC Morphine Sulfate (Morphine Sulfate) 1 mg PRN Q10MIN PRN IV SEVERE PAIN 7-10; Start 12/25/18 at 08:15; Stop 12/26/18 at 08:14; Status DC Ringer's Solution 1,000 ml @ 30 mls/hr Q24H IV Last administered on 12/25/18at 12:18; Start 12/25/18 at 08:02; Stop 12/25/18 at 20:01; Status DC Lidocaine HCl (Xylocaine-Mpf 1% 2ml Vial) 2 ml PRN 1X PRN ID PRIOR TO IV START; Start 12/25/18 at 08:15; Stop 12/26/18 at 08:14; Status DC Hydromorphone HCl (Dilaudid) 0.5 mg PRN Q10MIN PRN IV SEV PAIN, Second choice; Start 12/25/18 at 08:15; Stop 12/26/18 at 08:14; Status DC Prochlorperazine Edisylate (Compazine) 5 mg PACU PRN PRN IV NAUSEA, MRX1; Start 12/25/18 at 08:15; Stop 12/26/18 at 08:14; Status DC Cefoxitin Sodium (Mefoxin) 2 gm 1X PREOP ONCE IVP ; Start 12/25/18 at 08:15; Stop 12/25/18 at 08:16; Status DC Dexamethasone Sodium Phosphate (Decadron) 20 mg STK-MED ONCE .ROUTE ; Start 12/25/18 at 08:13; Stop 12/25/18 at 08:14; Status DC Lidocaine HCl (Lidocaine Pf 2% Vial) 5 ml STK-MED ONCE .ROUTE ; Start 12/25/18 at 08:13; Stop 12/25/18 at 08:14; Status DC Propofol 20 ml @ As Directed STK-MED ONCE IV ; Start 12/25/18 at 08:13; Stop 12/25/18 at 08:14; Status DC Famotidine (Pepcid Vial) 20 mg STK-MED ONCE .ROUTE ; Start 12/25/18 at 08:13; Stop 12/25/18 at 08:14; Status DC Ondansetron HCl (Zofran) 4 mg STK-MED ONCE .ROUTE ; Start 12/25/18 at 08:13; Stop 12/25/18 at 08:14; Status DC Succinylcholine Chloride (Anectine) 200 mg STK-MED ONCE .ROUTE ; Start 12/25/18 at 08:13; Stop 12/25/18 at 08:14; Status DC Rocuronium Valentine (Zemuron) 50 mg STK-MED ONCE .ROUTE ; Start 12/25/18 at 08:13; Stop 12/25/18 at 08:14; Status DC Fentanyl Citrate (Fentanyl 2ml Vial) 100 mcg STK-MED ONCE .ROUTE ; Start 05/05 at 08:14; Stop 12/25/18 at 08:15; Status DC Bupivacaine HCl/ Epinephrine Bitart (Sensorcain-Mpf Epi 0.5%-[id number]) 30 ml STK-MED ONCE .ROUTE Last administered on 12/25/18at 09:52; Start 12/25/18 at 07:16; Stop 12/25/18 at 08:17; Status DC Metoprolol Tartrate (Lopressor Vial) 5 mg STK-MED ONCE IVP ; Start 12/25/18 at 09:07; Stop 12/25/18 at 09:08; Status DC Neostigmine Methylsulfate (Neostigmine Methylsulfate) 5 mg STK-MED ONCE .ROUTE ; Start 12/25/18 at 09:28; Stop 12/25/18 at 09:29; Status DC Glycopyrrolate (Robinul) 1 mg STK-MED ONCE .ROUTE ; Start 12/25/18 at 09:28; Stop 12/25/18 at 09:29; Status DC Hydromorphone HCl (Dilaudid) 2 mg STK-MED ONCE .ROUTE ; Start 12/25/18 at 09:57; Stop 12/25/18 at 09:58; Status DC Vecuronium Valentine (Norcuron Bolus) 10 mg STK-MED ONCE IV ; Start 12/25/18 at 10:06; Stop 12/25/18 at 10:07; Status DC Sevoflurane (Ultane) 90 ml STK-MED ONCE IH ; Start 12/25/18 at 10:08; Stop 12/25/18 at 10:09; Status DC Cefoxitin Sodium (Mefoxin) 1 gm STK-MED ONCE IVP ; Start 12/25/18 at 11:21; Stop 12/25/18 at 11:22; Status DC Fentanyl Citrate (Fentanyl 2ml Vial) 100 mcg STK-MED ONCE .ROUTE ; Start at 12:12; Stop 12/25/18 at 12:13; Status DC Cefazolin Sodium 1 gm/Dextrose 50 ml @ 100 mls/hr Q8H IV ; Start 12/25/18 at 12 :30; Status UNV Famotidine (Pepcid Vial) 20 mg BID IVP Last administered on 12/25/18at 21:18; Start 12/25/18 at 21:00; Stop 12/26/18 at 09:34; Status DC Enoxaparin Sodium (Lovenox 40mg Syringe) 40 mg Q24H SQ Last administered on 12/26/18at 20:44; Start 12/25/18 at 22:00 Sodium Chloride (Normal Saline Flush) 3 ml QSHIFT PRN IV AFTER MEDS AND BLOOD DRAWS; Start 12/25/18 at 12:15 Ringer's Solution 1,000 ml @ 100 mls/hr Q10H IV Last administered on 12/27/18at 05:56; Start 12/25/18 at 12:13; Stop 12/27/18 at 10:49; Status DC Naloxone HCl (Narcan) 0.4 mg PRN Q2MIN PRN IV SEE INSTRUCTIONS; Start 12/25/18 at 12:15 Sodium Chloride 1,000 ml @ 25 mls/hr Q24H IV Last administered on 12/26/18at 13:24; Start 12/25/18 at 12:13 Morphine Sulfate 30 ml @ 0 mls/hr CONT PRN PRN IV PER PROTOCOL Last administered on 12/27/18at 06:23; Start 12/25/18 at 12:15; Stop 12/27/18 at 10:13; Status DC Ondansetron HCl (Zofran) 4 mg PRN Q6HRS PRN IV NAUESA, 1ST CHOICE; Start 12/25/18 at 12:15 Cefazolin Sodium (Ancef) 1 gm Q8HRS IVP Last administered on 12/27/18at 05:55; Start 12/25/18 at 14:00 Pantoprazole Sodium (PROTONIX VIAL for IV PUSH) 40 mg BIDAC IVP Last administered on 12/27/18at 05:55; Start 12/26/18 at 09:45 Lactobacillus Rhamnosus (Culturelle) 1 cap BID PO Last administered on 12/27/18at 09:15; Start 12/26/18 at 21:00 Acetaminophen/ Hydrocodone Bitart (Lortab 5/325) 1 tab PRN Q4HRS PRN PO PAIN; Start 12/27/18 at 10:15 Morphine Sulfate (Morphine Sulfate) 4 mg PRN Q4HRS PRN IV PAIN; Start 12/27/18 at 10:15 Potassium Chloride 20 meq/ Ringer's Solution 1,010 ml @ 100 mls/hr Q10H6M IV Last administered on 12/27/18at 12:11; Start 12/27/18 at 11:00 Active Scripts Active Pyridium (Phenazopyridine Hcl) 200 Mg Tablet 200 Mg PO TID 7 Days Reported [place] 5-325 Tablet (Acetaminophen/Hydrocodone Bitart) 1 Each Tablet 1 Tab PO PRN Q6HRS PRN LAST DOSE GIVEN: Glimepiride 1 Mg Tablet 1 Mg PO DAILY Proscar (Finasteride) 5 Mg Tablet 5 Mg PO DAILY Flomax (Tamsulosin Hcl) 0.4 Mg Cap.er.24h 0.4 Mg PO DAILY Aspir-Low (Aspirin) 81 Mg Tablet.dr 1 Tab PO DAILY Isosorbide Mononitrate Er (Isosorbide Mononitrate) 30 Mg Tab.er.24h 15 Mg PO DAILY Simvastatin 40 Mg Tablet 1 Tab PO QHS Metoprolol Succinate 50 Mg Tab.er.24h 25 Mg PO Allergies Allergies: Coded Allergies: Penicillins (Verified Allergy, Intermediate, tolerates ZOSYN, 07/23/18) ROS Gastrointestinal: Yes Abdominal Pain (steadily improving.) Physical Exam General: mild distress HEENT: Atraumatic Lungs: Clear to auscultation Heart: Other (irregularly irregular) Abdomen: Other (mild postop pain) Vitals VITALS Vital Signs Date Time Temp Pulse Resp B/P (MAP) Pulse Ox O2 Delivery O2 Flow Rate FiO2 12/27/18 11:00 97.9 130 18 139/82 (101) 95 Nasal Cannula 1.0 97.9 Labs Labs Laboratory Tests Test 12/25/18 14:50 12/25/18 17:00 12/25/18 21:30 12/26/18 04:05 White Blood Count 8.4 x10^3/uL (4.0-11.0) 9.9 x10^3/uL (4.0-11.0) Red Blood Count 4.65 x10^6/uL (4.30-5.70) 4.65 x10^6/uL (4.30-5.70) Hemoglobin 14.7 g/dL (13.0-17.5) 14.4 g/dL (13.0-17.5) Hematocrit 42.5 % (39.0-53.0) 42.5 % (39.0-53.0) Mean Corpuscular Volume 91 fL (79-100) 91 fL (79-100) Mean Corpuscular Hemoglobin 32 pg (25-35) 31 pg (25-35) Mean Corpuscular Hemoglobin Concent 35 g/dL (31-37) 34 g/dL (31-37) Red Cell Distribution Width 14.3 % (11.5-14.5) 14.7 % (11.5-14.5) Platelet Count 124 x10^3/uL (140-400) 128 x10^3/uL (140-400) Sodium Level 138 mmol/L (136-145) 138 mmol/L (136-145) Potassium Level 4.2 mmol/L (3.5-5.1) 3.9 mmol/L (3.5-5.1) Chloride Level 104 mmol/L (98-107) 105 mmol/L (98-107) Carbon Dioxide Level 27 mmol/L (21-32) 26 mmol/L (21-32) Anion Gap 7 (6-14) 7 (6-14) Blood Urea Nitrogen 17 mg/dL (8-26) 17 mg/dL (8-26) Creatinine 1.0 mg/dL (0.7-1.3) 1.0 mg/dL (0.7-1.3) Estimated GFR (Cockcroft-Gault) 73.0 73.0 BUN/Creatinine Ratio 17 (6-20) Glucose Level 166 mg/dL (70-99) 144 mg/dL (70-99) Calcium Level 8.8 mg/dL (8.5-10.1) 8.8 mg/dL (8.5-10.1) Total Bilirubin 1.1 mg/dL (0.2-1.0) Aspartate Amino Transf (AST/SGOT) 60 U/L (15-37) Alanine Aminotransferase (ALT/SGPT) 85 U/L (16-63) Alkaline Phosphatase 47 U/L (46-116) Total Protein 6.3 g/dL (6.4-8.2) Albumin 3.4 g/dL (3.4-5.0) Albumin/Globulin Ratio 1.2 (1.0-1.7) Glucose (Fingerstick) 157 mg/dL (70-99) 163 mg/dL (70-99) Neutrophils (%) (Auto) 74 % (31-73) Lymphocytes (%) (Auto) 18 % (24-48) Monocytes (%) (Auto) 9 % (0-9) Eosinophils (%) (Auto) 0 % (0-3) Basophils (%) (Auto) 0 % (0-3) Neutrophils # (Auto) 7.2 x10^3/uL (1.8-7.7) Lymphocytes # (Auto) 1.7 x10^3/uL (1.0-4.8) Monocytes # (Auto) 0.9 x10^3/uL (0.0-1.1) Eosinophils # (Auto) 0.0 x10^3/uL (0.0-0.7) Basophils # (Auto) 0.0 x10^3/uL (0.0-0.2) Test 12/26/18 07:50 12/26/18 11:42 12/26/18 16:45 12/26/18 20:18 Glucose (Fingerstick) 137 mg/dL (70-99) 110 mg/dL (70-99) 126 mg/dL (70-99) 179 mg/dL (70-99) Test 12/27/18 05:10 12/27/18 07:24 12/27/18 09:41 12/27/18 11:34 White Blood Count 6.8 x10^3/uL (4.0-11.0) Red Blood Count 4.48 x10^6/uL (4.30-5.70) Hemoglobin 14.2 g/dL (13.0-17.5) Hematocrit 40.6 % (39.0-53.0) Mean Corpuscular Volume 91 fL (79-100) Mean Corpuscular Hemoglobin 32 pg (25-35) Mean Corpuscular Hemoglobin Concent 35 g/dL (31-37) Red Cell Distribution Width 14.5 % (11.5-14.5) Platelet Count 127 x10^3/uL (140-400) Neutrophils (%) (Auto) 64 % (31-73) Lymphocytes (%) (Auto) 25 % (24-48) Monocytes (%) (Auto) 10 % (0-9) Eosinophils (%) (Auto) 1 % (0-3) Basophils (%) (Auto) 0 % (0-3) Neutrophils # (Auto) 4.4 x10^3/uL (1.8-7.7) Lymphocytes # (Auto) 1.7 x10^3/uL (1.0-4.8) Monocytes # (Auto) 0.7 x10^3/uL (0.0-1.1) Eosinophils # (Auto) 0.1 x10^3/uL (0.0-0.7) Basophils # (Auto) 0.0 x10^3/uL (0.0-0.2) Sodium Level 138 mmol/L (136-145) Potassium Level 3.6 mmol/L (3.5-5.1) Chloride Level 105 mmol/L (98-107) Carbon Dioxide Level 27 mmol/L (21-32) Anion Gap 6 (6-14) Blood Urea Nitrogen 16 mg/dL (8-26) Creatinine 0.8 mg/dL (0.7-1.3) Estimated GFR (Cockcroft-Gault) 94.5 BUN/Creatinine Ratio 20 (6-20) Glucose Level 127 mg/dL (70-99) Calcium Level 8.6 mg/dL (8.5-10.1) Total Bilirubin 0.7 mg/dL (0.2-1.0) Aspartate Amino Transf (AST/SGOT) 22 U/L (15-37) Alanine Aminotransferase (ALT/SGPT) 43 U/L (16-63) Alkaline Phosphatase 47 U/L (46-116) Total Protein 6.1 g/dL (6.4-8.2) Albumin 2.9 g/dL (3.4-5.0) Albumin/Globulin Ratio 0.9 (1.0-1.7) Glucose (Fingerstick) 115 mg/dL (70-99) 132 mg/dL (70-99) 140 mg/dL (70-99) Laboratory Tests Test 12/26/18 16:45 12/26/18 20:18 12/27/18 05:10 12/27/18 07:24 Glucose (Fingerstick) 126 mg/dL (70-99) 179 mg/dL (70-99) 115 mg/dL (70-99) White Blood Count 6.8 x10^3/uL (4.0-11.0) Red Blood Count 4.48 x10^6/uL (4.30-5.70) Hemoglobin 14.2 g/dL (13.0-17.5) Hematocrit 40.6 % (39.0-53.0) Mean Corpuscular Volume 91 fL (79-100) Mean Corpuscular Hemoglobin 32 pg (25-35) Mean Corpuscular Hemoglobin Concent 35 g/dL (31-37) Red Cell Distribution Width 14.5 % (11.5-14.5) Platelet Count 127 x10^3/uL (140-400) Neutrophils (%) (Auto) 64 % (31-73) Lymphocytes (%) (Auto) 25 % (24-48) Monocytes (%) (Auto) 10 % (0-9) Eosinophils (%) (Auto) 1 % (0-3) Basophils (%) (Auto) 0 % (0-3) Neutrophils # (Auto) 4.4 x10^3/uL (1.8-7.7) Lymphocytes # (Auto) 1.7 x10^3/uL (1.0-4.8) Monocytes # (Auto) 0.7 x10^3/uL (0.0-1.1) Eosinophils # (Auto) 0.1 x10^3/uL (0.0-0.7) Basophils # (Auto) 0.0 x10^3/uL (0.0-0.2) Sodium Level 138 mmol/L (136-145) Potassium Level 3.6 mmol/L (3.5-5.1) Chloride Level 105 mmol/L (98-107) Carbon Dioxide Level 27 mmol/L (21-32) Anion Gap 6 (6-14) Blood Urea Nitrogen 16 mg/dL (8-26) Creatinine 0.8 mg/dL (0.7-1.3) Estimated GFR (Cockcroft-Gault) 94.5 BUN/Creatinine Ratio 20 (6-20) Glucose Level 127 mg/dL (70-99) Calcium Level 8.6 mg/dL (8.5-10.1) Total Bilirubin 0.7 mg/dL (0.2-1.0) Aspartate Amino Transf (AST/SGOT) 22 U/L (15-37) Alanine Aminotransferase (ALT/SGPT) 43 U/L (16-63) Alkaline Phosphatase 47 U/L (46-116) Total Protein 6.1 g/dL (6.4-8.2) Albumin 2.9 g/dL (3.4-5.0) Albumin/Globulin Ratio 0.9 (1.0-1.7) Test 12/27/18 09:41 12/27/18 11:34 Glucose (Fingerstick) 132 mg/dL (70-99) 140 mg/dL (70-99) Assessment/Plan Assessment/Plan 1. 2 days status post open exploratory lap with a duodenal ulcer repair. Gradually improving. Followed by the surgical service. 2. Atrial fibrillation. Rate controlled. No clear past history of atrial fibrillation. We'll transfer to a telemetry bed and continue close monitoring. 3. Hypertension. Controlled. Continue to monitor. 4. Hyperlipidemia. We'll check a stat level. 5. History of coronary artery disease and previous stenting. No chest pain. Continue present medications. Thank you for allowing us to participate in the care of your patient. TRISTIAN DAS MD Dec 27, 2018 13:25
[2018-12-27 15:00] VITALS: BP 116/76
[2018-12-27 19:00] VITALS: BP 118/71
[2018-12-27] MEDS: HYDROcodone/APAP 5/325MG 1 TAB TABLET PO PRN (20:48)
[2018-12-27] MEDS: ENOXAPARIN 40 MG/0.4 ML SYRINGE. SQ SCH (20:51)
[2018-12-27] MEDS: MORPHINE SULFATE 4 MG/ML VIAL. IV PRN (21:55)
[2018-12-27 23:00] VITALS: BP 129/77
[2018-12-28 03:00] VITALS: BP 127/72
[2018-12-28] MEDS: MORPHINE SULFATE 4 MG/ML VIAL. IV PRN (03:04)
[2018-12-28] MEDS: HYDROcodone/APAP 5/325MG 1 TAB TABLET PO PRN ×2 (03:48→08:27)
[2018-12-28 04:23] LABS: BASO % 0 % (0-3); EOS # 0.1 x10^3/uL (0.0-0.7); EOS % 2 % (0-3); HEMATOCRIT 39.6 % (39.0-53.0); HEMOGLOBIN 13.6 g/dL (13.0-17.5); LYMPH # 1.2 x10^3/uL (1.0-4.8); LYMPH % 26 % (24-48); MEAN CORPUSCULAR HEMOGLOBIN 31 pg (25-35); MEAN CORPUSCULAR HGB CONC 34 g/dL (31-37); MEAN CORPUSCULAR VOLUME 91 fL (79-100); MONO # 0.6 x10^3/uL (0.0-1.1); MONO % 13 % (0-9); NEUT # 2.7 x10^3/uL (1.8-7.7); NEUT % 59 % (31-73); PLATELET COUNT 127 x10^3/uL (140-400); RED BLOOD COUNT 4.35 x10^6/uL (4.30-5.70); RED CELL DISTRIBUTION WIDTH 14.4 % (11.5-14.5); WHITE BLOOD COUNT 4.6 x10^3/uL (4.0-11.0)
[2018-12-28 04:40] LABS: CALCIUM 8.6 mg/dL (8.5-10.1); CREATININE 0.7 mg/dL (0.7-1.3); GFR 110.2; POTASSIUM 4.1 mmol/L (3.5-5.1)
[2018-12-28 04:58] LABS: CHOLESTEROL/HDL RATIO 2.4
[2018-12-28] MEDS: ceFAZolin SODIUM IV Push 1 GM VIAL. IVP SCH ×3 (05:55→20:58)
[2018-12-28 07:00] VITALS: BP 135/83
[2018-12-28] MEDS: RINGERS LACTATED IV SCH ×2 (08:26→18:07)
[2018-12-28] MEDS: POTASSIUM CHLORIDE IV SCH ×2 (08:26→18:07)
[2018-12-28] MEDS: PANTOPRAZOLE IV PUSH 40 MG VIAL. IVP SCH ×2 (08:27→16:38)
[2018-12-28] MEDS: LACTOBACILLUS RHAMNOSUS GG 1 CAPSULE. PO SCH ×2 (08:27→20:57)
--- NOTE | 2018-12-28 10:18 | PDOC ---
IM PROGRESS NOTES- Subjective Subjective Has some abdominal pain. Complains of constipation. Objective Vitals/I&O Vital Signs Date Time Temp Pulse Resp B/P (MAP) Pulse Ox O2 Delivery O2 Flow Rate FiO2 12/28/18 08:27 98 Nasal Cannula 1.0 12/28/18 07:00 97.9 92 18 135/83 (100) 97.9 I & O 12/27/18 12/27/18 12/28/18 14:59 22:59 06:59 Intake Total 450 ml 950 ml Output Total 100 ml 900 ml 750 ml Balance 350 ml 50 ml -750 ml Physical Exam Physical Exam General appearance - alert,well appearing, and in no distress and oriented to person, place, and time Mental Status - alert, oriented to person, place, and time, affect appropriate to mood Head - normal Chest - clear to auscultation, no wheezes, rales or rhonchi, symmetric air entry Heart - S1 and S2 normal Abdomen - soft, dressing in place Neurological - alert and oriented Musculoskeletal - no muscular tenderness noted Extremities - no pedal edema Skin - warm and dry Labs Laboratory Tests Test 12/27/18 11:34 12/27/18 17:25 12/28/18 03:45 12/28/18 08:04 Glucose (Fingerstick) 140 mg/dL (70-99) H 153 mg/dL (70-99) H 122 mg/dL (70-99) H White Blood Count 4.6 x10^3/uL (4.0-11.0) Red Blood Count 4.35 x10^6/uL (4.30-5.70) Hemoglobin 13.6 g/dL (13.0-17.5) Hematocrit 39.6 % (39.0-53.0) Mean Corpuscular Volume 91 fL (79-100) Mean Corpuscular Hemoglobin 31 pg (25-35) Mean Corpuscular Hemoglobin Concent 34 g/dL (31-37) Red Cell Distribution Width 14.4 % (11.5-14.5) Platelet Count 127 x10^3/uL (140-400) L Neutrophils (%) (Auto) 59 % (31-73) Lymphocytes (%) (Auto) 26 % (24-48) Monocytes (%) (Auto) 13 % (0-9) H Eosinophils (%) (Auto) 2 % (0-3) Basophils (%) (Auto) 0 % (0-3) Neutrophils # (Auto) 2.7 x10^3/uL (1.8-7.7) Lymphocytes # (Auto) 1.2 x10^3/uL (1.0-4.8) Monocytes # (Auto) 0.6 x10^3/uL (0.0-1.1) Eosinophils # (Auto) 0.1 x10^3/uL (0.0-0.7) Basophils # (Auto) 0.0 x10^3/uL (0.0-0.2) Sodium Level 136 mmol/L (136-145) Potassium Level 4.1 mmol/L (3.5-5.1) Chloride Level 103 mmol/L (98-107) Carbon Dioxide Level 28 mmol/L (21-32) Anion Gap 5 (6-14) L Blood Urea Nitrogen 14 mg/dL (8-26) Creatinine 0.7 mg/dL (0.7-1.3) Estimated GFR (Cockcroft-Gault) 110.2 Glucose Level 136 mg/dL (70-99) H Calcium Level 8.6 mg/dL (8.5-10.1) Triglycerides Level 58 mg/dL (0-150) Cholesterol Level 86 mg/dL (0-200) LDL Cholesterol, Calculated 38 mg/dL (0-100) VLDL Cholesterol, Calculated 12 mg/dL (0-40) Non-HDL Cholesterol Calculated 50 mg/dL (0-129) HDL Cholesterol 36 mg/dL (40-60) L Cholesterol/HDL Ratio 2.4 Laboratory Tests 12/28/18 03:45 Laboratory Tests 12/28/18 03:45 Meds Current Medications Medications (Trade) Dose Ordered Sig/Ace Route PRN Reason Start Time Stop Time Status Last Admin Dose Admin Potassium Chloride 20 meq/ Ringer's Solution 1,010 ml @ 100 mls/hr Q10H6M IV 12/27/18 11:00 12/28/18 08:26 Assessment Assessment Perforated duodenal ulcer- to Dominique consulted. Patient had Laparoscopy converted to open exploratory laparotomy, lysis of adhesions, nighat patch repair of duodenal ulcer. I strongly advised the patient to avoid using any NSAIDs. Hypertension Anemia Elevated LFTs plan- continue nothing by mouth. IV fluids. Recheck labs in a.m. GI consult with Dr. Hardy Jeffrey. PPI Hypokalemia-add potassium chloride to IV fluids. Follow-up labs in a.m. Atrial fibrillation- consult cardiology. Transfer to telemetry. Medications per cardiology. Constipation- start MiraLAX Patient would like to go home tomorrow because he is the sole care provider for his . Plan Plan For more details regarding further plans, please refer to the orders. ANABELA JENSEN MD Dec 28, 2018 10:18
[2018-12-28 11:00] VITALS: BP 134/78
--- NOTE | 2018-12-28 11:48 | PDOC ---
SURGICAL PROGRESS NOTE Subjective tolerating full liquids pain controlled Vital Signs Vital Signs Date Time Temp Pulse Resp B/P (MAP) Pulse Ox O2 Delivery O2 Flow Rate FiO2 12/28/18 11:00 98.7 87 18 134/78 (96) 96 Room Air 98.7 12/28/18 09:27 1.0 I&O Intake and Output 12/28/18 07:00 Intake Total 1400 ml Output Total 1750 ml Balance -350 ml Intake Oral 450 ml IV Total 950 ml Output Urine Total 1750 ml PATIENT HAS A ZUNIGA: No General: Alert, No acute distress Abdomen: Soft, Other (incisons c/d) Labs Laboratory Tests Test 12/26/18 16:45 12/26/18 20:18 12/27/18 05:10 12/27/18 07:24 Glucose (Fingerstick) 126 mg/dL (70-99) 179 mg/dL (70-99) 115 mg/dL (70-99) White Blood Count 6.8 x10^3/uL (4.0-11.0) Red Blood Count 4.48 x10^6/uL (4.30-5.70) Hemoglobin 14.2 g/dL (13.0-17.5) Hematocrit 40.6 % (39.0-53.0) Mean Corpuscular Volume 91 fL (79-100) Mean Corpuscular Hemoglobin 32 pg (25-35) Mean Corpuscular Hemoglobin Concent 35 g/dL (31-37) Red Cell Distribution Width 14.5 % (11.5-14.5) Platelet Count 127 x10^3/uL (140-400) Neutrophils (%) (Auto) 64 % (31-73) Lymphocytes (%) (Auto) 25 % (24-48) Monocytes (%) (Auto) 10 % (0-9) Eosinophils (%) (Auto) 1 % (0-3) Basophils (%) (Auto) 0 % (0-3) Neutrophils # (Auto) 4.4 x10^3/uL (1.8-7.7) Lymphocytes # (Auto) 1.7 x10^3/uL (1.0-4.8) Monocytes # (Auto) 0.7 x10^3/uL (0.0-1.1) Eosinophils # (Auto) 0.1 x10^3/uL (0.0-0.7) Basophils # (Auto) 0.0 x10^3/uL (0.0-0.2) Sodium Level 138 mmol/L (136-145) Potassium Level 3.6 mmol/L (3.5-5.1) Chloride Level 105 mmol/L (98-107) Carbon Dioxide Level 27 mmol/L (21-32) Anion Gap 6 (6-14) Blood Urea Nitrogen 16 mg/dL (8-26) Creatinine 0.8 mg/dL (0.7-1.3) Estimated GFR (Cockcroft-Gault) 94.5 BUN/Creatinine Ratio 20 (6-20) Glucose Level 127 mg/dL (70-99) Calcium Level 8.6 mg/dL (8.5-10.1) Total Bilirubin 0.7 mg/dL (0.2-1.0) Aspartate Amino Transf (AST/SGOT) 22 U/L (15-37) Alanine Aminotransferase (ALT/SGPT) 43 U/L (16-63) Alkaline Phosphatase 47 U/L (46-116) Total Protein 6.1 g/dL (6.4-8.2) Albumin 2.9 g/dL (3.4-5.0) Albumin/Globulin Ratio 0.9 (1.0-1.7) Test 12/27/18 09:41 12/27/18 11:34 12/27/18 17:25 12/28/18 03:45 Glucose (Fingerstick) 132 mg/dL (70-99) 140 mg/dL (70-99) 153 mg/dL (70-99) White Blood Count 4.6 x10^3/uL (4.0-11.0) Red Blood Count 4.35 x10^6/uL (4.30-5.70) Hemoglobin 13.6 g/dL (13.0-17.5) Hematocrit 39.6 % (39.0-53.0) Mean Corpuscular Volume 91 fL (79-100) Mean Corpuscular Hemoglobin 31 pg (25-35) Mean Corpuscular Hemoglobin Concent 34 g/dL (31-37) Red Cell Distribution Width 14.4 % (11.5-14.5) Platelet Count 127 x10^3/uL (140-400) Neutrophils (%) (Auto) 59 % (31-73) Lymphocytes (%) (Auto) 26 % (24-48) Monocytes (%) (Auto) 13 % (0-9) Eosinophils (%) (Auto) 2 % (0-3) Basophils (%) (Auto) 0 % (0-3) Neutrophils # (Auto) 2.7 x10^3/uL (1.8-7.7) Lymphocytes # (Auto) 1.2 x10^3/uL (1.0-4.8) Monocytes # (Auto) 0.6 x10^3/uL (0.0-1.1) Eosinophils # (Auto) 0.1 x10^3/uL (0.0-0.7) Basophils # (Auto) 0.0 x10^3/uL (0.0-0.2) Sodium Level 136 mmol/L (136-145) Potassium Level 4.1 mmol/L (3.5-5.1) Chloride Level 103 mmol/L (98-107) Carbon Dioxide Level 28 mmol/L (21-32) Anion Gap 5 (6-14) Blood Urea Nitrogen 14 mg/dL (8-26) Creatinine 0.7 mg/dL (0.7-1.3) Estimated GFR (Cockcroft-Gault) 110.2 Glucose Level 136 mg/dL (70-99) Calcium Level 8.6 mg/dL (8.5-10.1) Triglycerides Level 58 mg/dL (0-150) Cholesterol Level 86 mg/dL (0-200) LDL Cholesterol, Calculated 38 mg/dL (0-100) VLDL Cholesterol, Calculated 12 mg/dL (0-40) Non-HDL Cholesterol Calculated 50 mg/dL (0-129) HDL Cholesterol 36 mg/dL (40-60) Cholesterol/HDL Ratio 2.4 Test 12/28/18 08:04 Glucose (Fingerstick) 122 mg/dL (70-99) Laboratory Tests Test 12/27/18 17:25 12/28/18 03:45 12/28/18 08:04 Glucose (Fingerstick) 153 mg/dL (70-99) 122 mg/dL (70-99) White Blood Count 4.6 x10^3/uL (4.0-11.0) Red Blood Count 4.35 x10^6/uL (4.30-5.70) Hemoglobin 13.6 g/dL (13.0-17.5) Hematocrit 39.6 % (39.0-53.0) Mean Corpuscular Volume 91 fL (79-100) Mean Corpuscular Hemoglobin 31 pg (25-35) Mean Corpuscular Hemoglobin Concent 34 g/dL (31-37) Red Cell Distribution Width 14.4 % (11.5-14.5) Platelet Count 127 x10^3/uL (140-400) Neutrophils (%) (Auto) 59 % (31-73) Lymphocytes (%) (Auto) 26 % (24-48) Monocytes (%) (Auto) 13 % (0-9) Eosinophils (%) (Auto) 2 % (0-3) Basophils (%) (Auto) 0 % (0-3) Neutrophils # (Auto) 2.7 x10^3/uL (1.8-7.7) Lymphocytes # (Auto) 1.2 x10^3/uL (1.0-4.8) Monocytes # (Auto) 0.6 x10^3/uL (0.0-1.1) Eosinophils # (Auto) 0.1 x10^3/uL (0.0-0.7) Basophils # (Auto) 0.0 x10^3/uL (0.0-0.2) Sodium Level 136 mmol/L (136-145) Potassium Level 4.1 mmol/L (3.5-5.1) Chloride Level 103 mmol/L (98-107) Carbon Dioxide Level 28 mmol/L (21-32) Anion Gap 5 (6-14) Blood Urea Nitrogen 14 mg/dL (8-26) Creatinine 0.7 mg/dL (0.7-1.3) Estimated GFR (Cockcroft-Gault) 110.2 Glucose Level 136 mg/dL (70-99) Calcium Level 8.6 mg/dL (8.5-10.1) Triglycerides Level 58 mg/dL (0-150) Cholesterol Level 86 mg/dL (0-200) LDL Cholesterol, Calculated 38 mg/dL (0-100) VLDL Cholesterol, Calculated 12 mg/dL (0-40) Non-HDL Cholesterol Calculated 50 mg/dL (0-129) HDL Cholesterol 36 mg/dL (40-60) Cholesterol/HDL Ratio 2.4 Problem List Problems Medical Problems: (1) Perforated duodenal ulcer Status: Acute (2) Pneumoperitoneum Status: Acute Assessment/Plan s/p closure perf ulcer advance diet home anytime from surgical standpoint TRANG HAAS MD Dec 28, 2018 11:48
--- NOTE | 2018-12-28 12:36 | PDOC ---
G I PROGRESS NOTE Subjective Eating regular diet w/o complaints. Has not stooled and would like some help. Physical Exam Lungs clear. RRR Abdomen soft, not tender save at incisions. Review of Relevant I have reviewed the following items catia (where applicable) has been applied. Labs Laboratory Tests Test 12/26/18 16:45 12/26/18 20:18 12/27/18 05:10 12/27/18 07:24 Glucose (Fingerstick) 126 mg/dL (70-99) 179 mg/dL (70-99) 115 mg/dL (70-99) White Blood Count 6.8 x10^3/uL (4.0-11.0) Red Blood Count 4.48 x10^6/uL (4.30-5.70) Hemoglobin 14.2 g/dL (13.0-17.5) Hematocrit 40.6 % (39.0-53.0) Mean Corpuscular Volume 91 fL (79-100) Mean Corpuscular Hemoglobin 32 pg (25-35) Mean Corpuscular Hemoglobin Concent 35 g/dL (31-37) Red Cell Distribution Width 14.5 % (11.5-14.5) Platelet Count 127 x10^3/uL (140-400) Neutrophils (%) (Auto) 64 % (31-73) Lymphocytes (%) (Auto) 25 % (24-48) Monocytes (%) (Auto) 10 % (0-9) Eosinophils (%) (Auto) 1 % (0-3) Basophils (%) (Auto) 0 % (0-3) Neutrophils # (Auto) 4.4 x10^3/uL (1.8-7.7) Lymphocytes # (Auto) 1.7 x10^3/uL (1.0-4.8) Monocytes # (Auto) 0.7 x10^3/uL (0.0-1.1) Eosinophils # (Auto) 0.1 x10^3/uL (0.0-0.7) Basophils # (Auto) 0.0 x10^3/uL (0.0-0.2) Sodium Level 138 mmol/L (136-145) Potassium Level 3.6 mmol/L (3.5-5.1) Chloride Level 105 mmol/L (98-107) Carbon Dioxide Level 27 mmol/L (21-32) Anion Gap 6 (6-14) Blood Urea Nitrogen 16 mg/dL (8-26) Creatinine 0.8 mg/dL (0.7-1.3) Estimated GFR (Cockcroft-Gault) 94.5 BUN/Creatinine Ratio 20 (6-20) Glucose Level 127 mg/dL (70-99) Calcium Level 8.6 mg/dL (8.5-10.1) Total Bilirubin 0.7 mg/dL (0.2-1.0) Aspartate Amino Transf (AST/SGOT) 22 U/L (15-37) Alanine Aminotransferase (ALT/SGPT) 43 U/L (16-63) Alkaline Phosphatase 47 U/L (46-116) Total Protein 6.1 g/dL (6.4-8.2) Albumin 2.9 g/dL (3.4-5.0) Albumin/Globulin Ratio 0.9 (1.0-1.7) Test 12/27/18 09:41 12/27/18 11:34 12/27/18 17:25 12/28/18 03:45 Glucose (Fingerstick) 132 mg/dL (70-99) 140 mg/dL (70-99) 153 mg/dL (70-99) White Blood Count 4.6 x10^3/uL (4.0-11.0) Red Blood Count 4.35 x10^6/uL (4.30-5.70) Hemoglobin 13.6 g/dL (13.0-17.5) Hematocrit 39.6 % (39.0-53.0) Mean Corpuscular Volume 91 fL (79-100) Mean Corpuscular Hemoglobin 31 pg (25-35) Mean Corpuscular Hemoglobin Concent 34 g/dL (31-37) Red Cell Distribution Width 14.4 % (11.5-14.5) Platelet Count 127 x10^3/uL (140-400) Neutrophils (%) (Auto) 59 % (31-73) Lymphocytes (%) (Auto) 26 % (24-48) Monocytes (%) (Auto) 13 % (0-9) Eosinophils (%) (Auto) 2 % (0-3) Basophils (%) (Auto) 0 % (0-3) Neutrophils # (Auto) 2.7 x10^3/uL (1.8-7.7) Lymphocytes # (Auto) 1.2 x10^3/uL (1.0-4.8) Monocytes # (Auto) 0.6 x10^3/uL (0.0-1.1) Eosinophils # (Auto) 0.1 x10^3/uL (0.0-0.7) Basophils # (Auto) 0.0 x10^3/uL (0.0-0.2) Sodium Level 136 mmol/L (136-145) Potassium Level 4.1 mmol/L (3.5-5.1) Chloride Level 103 mmol/L (98-107) Carbon Dioxide Level 28 mmol/L (21-32) Anion Gap 5 (6-14) Blood Urea Nitrogen 14 mg/dL (8-26) Creatinine 0.7 mg/dL (0.7-1.3) Estimated GFR (Cockcroft-Gault) 110.2 Glucose Level 136 mg/dL (70-99) Calcium Level 8.6 mg/dL (8.5-10.1) Triglycerides Level 58 mg/dL (0-150) Cholesterol Level 86 mg/dL (0-200) LDL Cholesterol, Calculated 38 mg/dL (0-100) VLDL Cholesterol, Calculated 12 mg/dL (0-40) Non-HDL Cholesterol Calculated 50 mg/dL (0-129) HDL Cholesterol 36 mg/dL (40-60) Cholesterol/HDL Ratio 2.4 Test 12/28/18 08:04 Glucose (Fingerstick) 122 mg/dL (70-99) Laboratory Tests Test 12/27/18 17:25 12/28/18 03:45 12/28/18 08:04 Glucose (Fingerstick) 153 mg/dL (70-99) 122 mg/dL (70-99) White Blood Count 4.6 x10^3/uL (4.0-11.0) Red Blood Count 4.35 x10^6/uL (4.30-5.70) Hemoglobin 13.6 g/dL (13.0-17.5) Hematocrit 39.6 % (39.0-53.0) Mean Corpuscular Volume 91 fL (79-100) Mean Corpuscular Hemoglobin 31 pg (25-35) Mean Corpuscular Hemoglobin Concent 34 g/dL (31-37) Red Cell Distribution Width 14.4 % (11.5-14.5) Platelet Count 127 x10^3/uL (140-400) Neutrophils (%) (Auto) 59 % (31-73) Lymphocytes (%) (Auto) 26 % (24-48) Monocytes (%) (Auto) 13 % (0-9) Eosinophils (%) (Auto) 2 % (0-3) Basophils (%) (Auto) 0 % (0-3) Neutrophils # (Auto) 2.7 x10^3/uL (1.8-7.7) Lymphocytes # (Auto) 1.2 x10^3/uL (1.0-4.8) Monocytes # (Auto) 0.6 x10^3/uL (0.0-1.1) Eosinophils # (Auto) 0.1 x10^3/uL (0.0-0.7) Basophils # (Auto) 0.0 x10^3/uL (0.0-0.2) Sodium Level 136 mmol/L (136-145) Potassium Level 4.1 mmol/L (3.5-5.1) Chloride Level 103 mmol/L (98-107) Carbon Dioxide Level 28 mmol/L (21-32) Anion Gap 5 (6-14) Blood Urea Nitrogen 14 mg/dL (8-26) Creatinine 0.7 mg/dL (0.7-1.3) Estimated GFR (Cockcroft-Gault) 110.2 Glucose Level 136 mg/dL (70-99) Calcium Level 8.6 mg/dL (8.5-10.1) Triglycerides Level 58 mg/dL (0-150) Cholesterol Level 86 mg/dL (0-200) LDL Cholesterol, Calculated 38 mg/dL (0-100) VLDL Cholesterol, Calculated 12 mg/dL (0-40) Non-HDL Cholesterol Calculated 50 mg/dL (0-129) HDL Cholesterol 36 mg/dL (40-60) Cholesterol/HDL Ratio 2.4 Vitals/I & O Vital Sign - Last 24 Hours 12/27/18 12/27/18 12/27/18 12/27/18 15:00 19:00 20:00 20:48 Temp 98.3 98.8 98.3 98.8 Pulse 108 87 Resp 18 20 20 B/P (MAP) 116/76 (89) 118/71 (87) Pulse Ox 95 97 O2 Delivery Nasal Cannula Nasal Cannula Nasal Cannula Nasal Cannula O2 Flow Rate 1.0 1.0 1.0 1.0 12/27/18 12/27/18 12/27/18 12/28/18 21:48 21:55 23:00 03:00 Temp 98.9 98.8 98.9 98.8 Pulse 88 85 Resp 20 20 16 18 B/P (MAP) 129/77 (94) 127/72 (90) Pulse Ox 98 98 O2 Delivery Nasal Cannula Nasal Cannula Nasal Cannula O2 Flow Rate 1.0 1.0 1.0 12/28/18 12/28/18 12/28/18 12/28/18 03:04 03:48 07:00 08:00 Temp 97.9 97.9 Pulse 92 Resp 22 18 18 B/P (MAP) 135/83 (100) Pulse Ox 97 O2 Delivery Nasal Cannula Nasal Cannula Nasal Cannula Nasal Cannula O2 Flow Rate 1.0 1.0 1.0 1.0 12/28/18 12/28/18 12/28/18 08:27 09:27 11:00 Temp 98.7 98.7 Pulse 87 Resp 18 B/P (MAP) 134/78 (96) Pulse Ox 98 98 96 O2 Delivery Nasal Cannula Nasal Cannula Room Air O2 Flow Rate 1.0 1.0 Intake and Output 12/27/18 12/27/18 12/28/18 15:00 23:00 07:00 Intake Total 450 ml 950 ml Output Total 100 ml 900 ml 750 ml Balance 350 ml 50 ml -750 ml Problem List Problems Medical Problems: (1) Perforated duodenal ulcer Status: Acute (2) Pneumoperitoneum Status: Acute Assessment Perforated NSAID ulcer, s/p operative closure, progressing well. Contstipation. Plan of Care: Continue current Tx, Mgmt Plan of Care Note MOM. IRINEO VIVAR MD Dec 28, 2018 12:36
[2018-12-28] MEDS ORDERED: MAGNESIUM HYDROXIDE 2,400 MG/30 ML ORAL.SUSP. PO PRN (12:45)
--- NOTE | 2018-12-28 13:59 | PDOC ---
PROGRESS NOTES Subjective Subjective Patient seen and examined He is feeling better. Objective Objective Vital Signs Date Time Temp Pulse Resp B/P (MAP) Pulse Ox O2 Delivery O2 Flow Rate FiO2 12/28/18 11:00 98.7 87 18 134/78 (96) 96 Room Air 98.7 12/28/18 09:27 1.0 Intake and Output 12/28/18 07:00 Intake Total 1400 ml Output Total 1750 ml Balance -350 ml Intake Oral 450 ml IV Total 950 ml Output Urine Total 1750 ml Physical Exam Abdomen: Normal bowel sounds Heart: Other (irregularly irregular) General: mild distress Lungs: Clear to auscultation Assessment Assessment Problems Medical Problems: (1) Perforated duodenal ulcer Status: Acute (2) Pneumoperitoneum Status: Acute 1. 3 days status post open exploratory lap with a duodenal ulcer repair. Gradually improving. Followed by the surgical service. 2. Atrial fibrillation. Rate controlled. No clear past history of atrial fibrillation. Remains in atrial fibrillation with some brief episodes of sinus rhythm. We'll continue on telemetry tonight. Possibly home tomorrow on anticoagulation and an outpatient monitor. 3. Hypertension. Controlled. Continue to monitor. 4. Hyperlipidemia. 5. History of coronary artery disease and previous stenting. No chest pain. Continue present medications. Comment Review of Relevant I have reviewed the following items catia (where applicable) has been applied. Labs Laboratory Tests Test 12/26/18 16:45 12/26/18 20:18 12/27/18 05:10 12/27/18 07:24 Glucose (Fingerstick) 126 mg/dL (70-99) 179 mg/dL (70-99) 115 mg/dL (70-99) White Blood Count 6.8 x10^3/uL (4.0-11.0) Red Blood Count 4.48 x10^6/uL (4.30-5.70) Hemoglobin 14.2 g/dL (13.0-17.5) Hematocrit 40.6 % (39.0-53.0) Mean Corpuscular Volume 91 fL (79-100) Mean Corpuscular Hemoglobin 32 pg (25-35) Mean Corpuscular Hemoglobin Concent 35 g/dL (31-37) Red Cell Distribution Width 14.5 % (11.5-14.5) Platelet Count 127 x10^3/uL (140-400) Neutrophils (%) (Auto) 64 % (31-73) Lymphocytes (%) (Auto) 25 % (24-48) Monocytes (%) (Auto) 10 % (0-9) Eosinophils (%) (Auto) 1 % (0-3) Basophils (%) (Auto) 0 % (0-3) Neutrophils # (Auto) 4.4 x10^3/uL (1.8-7.7) Lymphocytes # (Auto) 1.7 x10^3/uL (1.0-4.8) Monocytes # (Auto) 0.7 x10^3/uL (0.0-1.1) Eosinophils # (Auto) 0.1 x10^3/uL (0.0-0.7) Basophils # (Auto) 0.0 x10^3/uL (0.0-0.2) Sodium Level 138 mmol/L (136-145) Potassium Level 3.6 mmol/L (3.5-5.1) Chloride Level 105 mmol/L (98-107) Carbon Dioxide Level 27 mmol/L (21-32) Anion Gap 6 (6-14) Blood Urea Nitrogen 16 mg/dL (8-26) Creatinine 0.8 mg/dL (0.7-1.3) Estimated GFR (Cockcroft-Gault) 94.5 BUN/Creatinine Ratio 20 (6-20) Glucose Level 127 mg/dL (70-99) Calcium Level 8.6 mg/dL (8.5-10.1) Total Bilirubin 0.7 mg/dL (0.2-1.0) Aspartate Amino Transf (AST/SGOT) 22 U/L (15-37) Alanine Aminotransferase (ALT/SGPT) 43 U/L (16-63) Alkaline Phosphatase 47 U/L (46-116) Total Protein 6.1 g/dL (6.4-8.2) Albumin 2.9 g/dL (3.4-5.0) Albumin/Globulin Ratio 0.9 (1.0-1.7) Test 12/27/18 09:41 12/27/18 11:34 12/27/18 17:25 12/28/18 03:45 Glucose (Fingerstick) 132 mg/dL (70-99) 140 mg/dL (70-99) 153 mg/dL (70-99) White Blood Count 4.6 x10^3/uL (4.0-11.0) Red Blood Count 4.35 x10^6/uL (4.30-5.70) Hemoglobin 13.6 g/dL (13.0-17.5) Hematocrit 39.6 % (39.0-53.0) Mean Corpuscular Volume 91 fL (79-100) Mean Corpuscular Hemoglobin 31 pg (25-35) Mean Corpuscular Hemoglobin Concent 34 g/dL (31-37) Red Cell Distribution Width 14.4 % (11.5-14.5) Platelet Count 127 x10^3/uL (140-400) Neutrophils (%) (Auto) 59 % (31-73) Lymphocytes (%) (Auto) 26 % (24-48) Monocytes (%) (Auto) 13 % (0-9) Eosinophils (%) (Auto) 2 % (0-3) Basophils (%) (Auto) 0 % (0-3) Neutrophils # (Auto) 2.7 x10^3/uL (1.8-7.7) Lymphocytes # (Auto) 1.2 x10^3/uL (1.0-4.8) Monocytes # (Auto) 0.6 x10^3/uL (0.0-1.1) Eosinophils # (Auto) 0.1 x10^3/uL (0.0-0.7) Basophils # (Auto) 0.0 x10^3/uL (0.0-0.2) Sodium Level 136 mmol/L (136-145) Potassium Level 4.1 mmol/L (3.5-5.1) Chloride Level 103 mmol/L (98-107) Carbon Dioxide Level 28 mmol/L (21-32) Anion Gap 5 (6-14) Blood Urea Nitrogen 14 mg/dL (8-26) Creatinine 0.7 mg/dL (0.7-1.3) Estimated GFR (Cockcroft-Gault) 110.2 Glucose Level 136 mg/dL (70-99) Calcium Level 8.6 mg/dL (8.5-10.1) Triglycerides Level 58 mg/dL (0-150) Cholesterol Level 86 mg/dL (0-200) LDL Cholesterol, Calculated 38 mg/dL (0-100) VLDL Cholesterol, Calculated 12 mg/dL (0-40) Non-HDL Cholesterol Calculated 50 mg/dL (0-129) HDL Cholesterol 36 mg/dL (40-60) Cholesterol/HDL Ratio 2.4 Test 12/28/18 08:04 Glucose (Fingerstick) 122 mg/dL (70-99) Laboratory Tests Test 12/27/18 17:25 12/28/18 03:45 12/28/18 08:04 Glucose (Fingerstick) 153 mg/dL (70-99) 122 mg/dL (70-99) White Blood Count 4.6 x10^3/uL (4.0-11.0) Red Blood Count 4.35 x10^6/uL (4.30-5.70) Hemoglobin 13.6 g/dL (13.0-17.5) Hematocrit 39.6 % (39.0-53.0) Mean Corpuscular Volume 91 fL (79-100) Mean Corpuscular Hemoglobin 31 pg (25-35) Mean Corpuscular Hemoglobin Concent 34 g/dL (31-37) Red Cell Distribution Width 14.4 % (11.5-14.5) Platelet Count 127 x10^3/uL (140-400) Neutrophils (%) (Auto) 59 % (31-73) Lymphocytes (%) (Auto) 26 % (24-48) Monocytes (%) (Auto) 13 % (0-9) Eosinophils (%) (Auto) 2 % (0-3) Basophils (%) (Auto) 0 % (0-3) Neutrophils # (Auto) 2.7 x10^3/uL (1.8-7.7) Lymphocytes # (Auto) 1.2 x10^3/uL (1.0-4.8) Monocytes # (Auto) 0.6 x10^3/uL (0.0-1.1) Eosinophils # (Auto) 0.1 x10^3/uL (0.0-0.7) Basophils # (Auto) 0.0 x10^3/uL (0.0-0.2) Sodium Level 136 mmol/L (136-145) Potassium Level 4.1 mmol/L (3.5-5.1) Chloride Level 103 mmol/L (98-107) Carbon Dioxide Level 28 mmol/L (21-32) Anion Gap 5 (6-14) Blood Urea Nitrogen 14 mg/dL (8-26) Creatinine 0.7 mg/dL (0.7-1.3) Estimated GFR (Cockcroft-Gault) 110.2 Glucose Level 136 mg/dL (70-99) Calcium Level 8.6 mg/dL (8.5-10.1) Triglycerides Level 58 mg/dL (0-150) Cholesterol Level 86 mg/dL (0-200) LDL Cholesterol, Calculated 38 mg/dL (0-100) VLDL Cholesterol, Calculated 12 mg/dL (0-40) Non-HDL Cholesterol Calculated 50 mg/dL (0-129) HDL Cholesterol 36 mg/dL (40-60) Cholesterol/HDL Ratio 2.4 Medications Current Medications Cefoxitin Sodium (Mefoxin) 2 gm 1X PREOP IVP ; Start 12/25/18 at 08:00; Status Cancel Ondansetron HCl (Zofran) 4 mg PRN Q6HRS PRN IV NAUSEA/VOMITING; Start 12/25/18 at 08:15; Stop 12/25/18 at 12:22; Status DC Fentanyl Citrate (Fentanyl 2ml Vial) 25 mcg PRN Q5MIN PRN IV MILD PAIN 1-3; Start 12/25/18 at 08:15; Stop 12/26/18 at 08:14; Status DC Fentanyl Citrate (Fentanyl 2ml Vial) 50 mcg PRN Q5MIN PRN IV MODERATE TO SEVERE PAIN Last administered on 12/25/18at 12:14; Start 12/25/18 at 08:15; Stop 12/26/18 at 08:14; Status DC Morphine Sulfate (Morphine Sulfate) 1 mg PRN Q10MIN PRN IV SEVERE PAIN 7-10; Start 12/25/18 at 08:15; Stop 12/26/18 at 08:14; Status DC Ringer's Solution 1,000 ml @ 30 mls/hr Q24H IV Last administered on 12/25/18at 12:18; Start 12/25/18 at 08:02; Stop 12/25/18 at 20:01; Status DC Lidocaine HCl (Xylocaine-Mpf 1% 2ml Vial) 2 ml PRN 1X PRN ID PRIOR TO IV START; Start 12/25/18 at 08:15; Stop 12/26/18 at 08:14; Status DC Hydromorphone HCl (Dilaudid) 0.5 mg PRN Q10MIN PRN IV SEV PAIN, Second choice; Start 12/25/18 at 08:15; Stop 12/26/18 at 08:14; Status DC Prochlorperazine Edisylate (Compazine) 5 mg PACU PRN PRN IV NAUSEA, MRX1; Start 12/25/18 at 08:15; Stop 12/26/18 at 08:14; Status DC Cefoxitin Sodium (Mefoxin) 2 gm 1X PREOP ONCE IVP ; Start 12/25/18 at 08:15; Stop 12/25/18 at 08:16; Status DC Dexamethasone Sodium Phosphate (Decadron) 20 mg STK-MED ONCE .ROUTE ; Start 12/25/18 at 08:13; Stop 12/25/18 at 08:14; Status DC Lidocaine HCl (Lidocaine Pf 2% Vial) 5 ml STK-MED ONCE .ROUTE ; Start 12/25/18 at 08:13; Stop 12/25/18 at 08:14; Status DC Propofol 20 ml @ As Directed STK-MED ONCE IV ; Start 12/25/18 at 08:13; Stop 12/25/18 at 08:14; Status DC Famotidine (Pepcid Vial) 20 mg STK-MED ONCE .ROUTE ; Start 12/25/18 at 08:13; Stop 12/25/18 at 08:14; Status DC Ondansetron HCl (Zofran) 4 mg STK-MED ONCE .ROUTE ; Start 12/25/18 at 08:13; Stop 12/25/18 at 08:14; Status DC Succinylcholine Chloride (Anectine) 200 mg STK-MED ONCE .ROUTE ; Start 12/25/18 at 08:13; Stop 12/25/18 at 08:14; Status DC Rocuronium [place] (Zemuron) 50 mg STK-MED ONCE .ROUTE ; Start 12/25/18 at 08:13; Stop 12/25/18 at 08:14; Status DC Fentanyl Citrate (Fentanyl 2ml Vial) 100 mcg STK-MED ONCE .ROUTE ; Start 12/25/18 at 08:14; Stop 12/25/18 at 08:15; Status DC Bupivacaine HCl/ Epinephrine Bitart (Sensorcain-Mpf Epi 0.5%-1:[id number]) 30 ml STK-MED ONCE .ROUTE Last administered on 12/25/18at 09:52; Start 12/25/18 at 07:16; Stop 12/25/18 at 08:17; Status DC Metoprolol Tartrate (Lopressor Vial) 5 mg STK-MED ONCE IVP ; Start 12/25/18 at 09:07; Stop 12/25/18 at 09:08; Status DC Neostigmine Methylsulfate (Neostigmine Methylsulfate) 5 mg STK-MED ONCE .ROUTE ; Start 12/25/18 at 09:28; Stop 12/25/18 at 09:29; Status DC Glycopyrrolate (Robinul) 1 mg STK-MED ONCE .ROUTE ; Start 12/25/18 at 09:28; Stop 12/25/18 at 09:29; Status DC Hydromorphone HCl (Dilaudid) 2 mg STK-MED ONCE .ROUTE ; Start 12/25/18 at 09:57; Stop 12/25/18 at 09:58; Status DC Vecuronium [place] (Norcuron Bolus) 10 mg STK-MED ONCE IV ; Start 12/25/18 at 10:06; Stop 12/25/18 at 10:07; Status DC Sevoflurane (Ultane) 90 ml STK-MED ONCE IH ; Start 12/25/18 at 10:08; Stop 12/25/18 at 10:09; Status DC Cefoxitin Sodium (Mefoxin) 1 gm STK-MED ONCE IVP ; Start 12/25/18 at 11:21; Stop 12/25/18 at 11:22; Status DC Fentanyl Citrate (Fentanyl 2ml Vial) 100 mcg STK-MED ONCE .ROUTE ; Start 12/25/18 at 12:12; Stop 12/25/18 at 12:13; Status DC Cefazolin Sodium 1 gm/Dextrose 50 ml @ 100 mls/hr Q8H IV ; Start 12/25/18 at 12:30; Status UNV Famotidine (Pepcid Vial) 20 mg BID IVP Last administered on 12/25/18at 21:18; Start 12/25/18 at 21:00; Stop 12/26/18 at 09:34; Status DC Enoxaparin Sodium (Lovenox 40mg Syringe) 40 mg Q24H SQ Last administered on 12/27/18 20:51; Start 12/25/18 at 22:00 Sodium Chloride (Normal Saline Flush) 3 ml QSHIFT PRN IV AFTER MEDS AND BLOOD DRAWS; Start 12/25/18 at 12:15 Ringer's Solution 1,000 ml @ 100 mls/hr Q10H IV Last administered on 12/27/18 05:56; Start 12/25/18 at 12:13; Stop 12/27/18 at 10:49; Status DC Naloxone HCl (Narcan) 0.4 mg PRN Q2MIN PRN IV SEE INSTRUCTIONS; Start 12/25/18 at 12:15 Sodium Chloride 1,000 ml @ 25 mls/hr Q24H IV Last administered on 12/26/18 13:24; Start 12/25/18 at 12:13; Stop 12/28/18 at 12:55; Status DC Morphine Sulfate 30 ml @ 0 mls/hr CONT PRN PRN IV PER PROTOCOL Last administered on 12/27/18 06:23; Start 12/25/18 at 12:15; Stop 12/27/18 at 10:13; Status DC Ondansetron HCl (Zofran) 4 mg PRN Q6HRS PRN IV NAUESA, 1ST CHOICE; Start 12/25/18 at 12:15 Cefazolin Sodium (Ancef) 1 gm Q8HRS IVP Last administered on 12/28/18 05:55; Start 12/25/18 at 14:00 Pantoprazole Sodium (PROTONIX VIAL for IV PUSH) 40 mg BIDAC IVP Last administered on 12/28/18 08:27; Start 12/26/18 at 09:45 Lactobacillus Rhamnosus (Culturelle) 1 cap BID PO Last administered on 12/28/18 08:27; Start 12/26/18 at 21:00 Acetaminophen/ Hydrocodone Bitart (Lortab 5/325) 1 tab PRN Q4HRS PRN PO PAIN Last administered on 12/28/18 08:27; Start 12/27/18 at 10:15 Morphine Sulfate (Morphine Sulfate) 4 mg PRN Q4HRS PRN IV PAIN Last administered on 12/28/18 03:04; Start 12/27/18 at 10:15 Potassium Chloride 20 meq/ Ringer's Solution 1,010 ml @ 100 mls/hr Q10H6M IV Last administered on 12/28/18at 08:26; Start 12/27/18 at 11:00 Magnesium Hydroxide (Milk Of Magnesia) 2,400 mg PRN DAILY PRN PO CONSTIPATION; Start 12/28/18 at 12:45 Active Scripts Active Pyridium (Phenazopyridine Hcl) 200 Mg Tablet 200 Mg PO TID 7 Days Reported [place] 5-325 Tablet (Acetaminophen/Hydrocodone Bitart) 1 Each Tablet 1 Tab PO PRN Q6HRS PRN LAST DOSE GIVEN: Glimepiride 1 Mg Tablet 1 Mg PO DAILY Proscar (Finasteride) 5 Mg Tablet 5 Mg PO DAILY Flomax (Tamsulosin Hcl) 0.4 Mg Cap.er.24h 0.4 Mg PO DAILY Aspir-Low (Aspirin) 81 Mg Tablet.dr 1 Tab PO DAILY Isosorbide Mononitrate Er (Isosorbide Mononitrate) 30 Mg Tab.er.24h 15 Mg PO DAILY Simvastatin 40 Mg Tablet 1 Tab PO QHS Metoprolol Succinate 50 Mg Tab.er.24h 25 Mg PO Vitals/I & O Vital Sign - Last 24 Hours 12/27/18 12/27/18 12/27/18 12/27/18 15:00 19:00 20:00 20:48 Temp 98.3 98.8 98.3 98.8 Pulse 108 87 Resp 18 20 20 B/P (MAP) 116/76 (89) 118/71 (87) Pulse Ox 95 97 O2 Delivery Nasal Cannula Nasal Cannula Nasal Cannula Nasal Cannula O2 Flow Rate 1.0 1.0 1.0 1.0 12/27/18 12/27/18 12/27/18 12/28/18 21:48 21:55 23:00 03:00 Temp 98.9 98.8 98.9 98.8 Pulse 88 85 Resp 20 20 16 18 B/P (MAP) 129/77 (94) 127/72 (90) Pulse Ox 98 98 O2 Delivery Nasal Cannula Nasal Cannula Nasal Cannula O2 Flow Rate 1.0 1.0 1.0 12/28/18 12/28/18 12/28/18 12/28/18 03:04 03:48 07:00 08:00 Temp 97.9 97.9 Pulse 92 Resp 22 18 18 B/P (MAP) 135/83 (100) Pulse Ox 97 O2 Delivery Nasal Cannula Nasal Cannula Nasal Cannula Nasal Cannula O2 Flow Rate 1.0 1.0 1.0 1.0 12/28/18 12/28/18 12/28/18 08:27 09:27 11:00 Temp 98.7 98.7 Pulse 87 Resp 18 B/P (MAP) 134/78 (96) Pulse Ox 98 98 96 O2 Delivery Nasal Cannula Nasal Cannula Room Air O2 Flow Rate 1.0 1.0 Intake and Output 12/27/18 12/27/18 12/28/18 15:00 23:00 07:00 Intake Total 450 ml 950 ml Output Total 100 ml 900 ml 750 ml Balance 350 ml 50 ml -750 ml TRISTIAN DAS MD Dec 28, 2018 13:59
[2018-12-28 15:00] VITALS: BP 126/82
[2018-12-28 19:45] VITALS: BP 156/90
[2018-12-28] MEDS: ENOXAPARIN 40 MG/0.4 ML SYRINGE. SQ SCH (20:58)
[2018-12-28 22:52] VITALS: BP 143/80
[2018-12-29] MEDS: HYDROcodone/APAP 5/325MG 1 TAB TABLET PO PRN (02:58)
[2018-12-29 03:16] VITALS: BP 150/86
[2018-12-29] MEDS: POTASSIUM CHLORIDE IV SCH (04:53)
[2018-12-29] MEDS: RINGERS LACTATED IV SCH (04:53)
[2018-12-29] MEDS: ceFAZolin SODIUM IV Push 1 GM VIAL. IVP SCH (06:02)
[2018-12-29 07:00] VITALS: BP 129/79
[2018-12-29] MEDS: LACTOBACILLUS RHAMNOSUS GG 1 CAPSULE. PO SCH (09:42)
[2018-12-29] MEDS: PANTOPRAZOLE IV PUSH 40 MG VIAL. IVP SCH (09:42)
--- NOTE | 2018-12-29 09:44 | PDOC ---
Subjective: Subjective: Tolerating PO, hasn't stooled. Objective: Objective: Reviewed w/ nurse - she notes MoM was ordered for yesterday but not given. ?DC today Vital Signs: Vital Signs Date Time Temp Pulse Resp B/P (MAP) Pulse Ox O2 Delivery O2 Flow Rate FiO2 12/29/18 07:00 99.1 92 18 129/79 (96) 95 Room Air 99.1 12/28/18 09:27 1.0 Labs: Laboratory Tests Test 12/28/18 17:18 12/28/18 20:46 12/29/18 08:08 Glucose (Fingerstick) 169 mg/dL 172 mg/dL 174 mg/dL PE: GEN: NAD, friendly - breakfast tray empty LUNGS: CTAB HEART: RRR ABD: NABS, soft NEURO/PSYCH: A & O �3 A/P: S/p repair of perforated duodenal ulcer A Fib Constipation -- Give MoM. Change to PO PPI since eating. Counseled re: narcotic use and constipation - can also try Miralax. Follow-up for outpt EGD and colonoscopy. YUDY SINGH Dec 29, 2018 09:44
[2018-12-29] MEDS ORDERED: POLYETHYLENE GLYCOL 3350 17 GM PACKET. PO PRN (09:45)
--- NOTE | 2018-12-29 10:19 | PDOC ---
SURGICAL PROGRESS NOTE Subjective tolerating diet pain managed with meds no stool yet Vital Signs Vital Signs Date Time Temp Pulse Resp B/P (MAP) Pulse Ox O2 Delivery O2 Flow Rate FiO2 12/29/18 07:00 99.1 92 18 129/79 (96) 95 Room Air 99.1 12/28/18 09:27 1.0 I&O Intake and Output 12/29/18 06:59 Intake Total 960 ml Output Total 3220 ml Balance -2260 ml Intake Oral 960 ml Output Urine Total 3220 ml General: Alert, Oriented X3, Cooperative, No acute distress Abdomen: Soft, Other (ND, incision c/d/i, no erythema ) Labs Laboratory Tests Test 12/27/18 11:34 12/27/18 17:25 12/28/18 03:45 12/28/18 08:04 Glucose (Fingerstick) 140 mg/dL (70-99) 153 mg/dL (70-99) 122 mg/dL (70-99) White Blood Count 4.6 x10^3/uL (4.0-11.0) Red Blood Count 4.35 x10^6/uL (4.30-5.70) Hemoglobin 13.6 g/dL (13.0-17.5) Hematocrit 39.6 % (39.0-53.0) Mean Corpuscular Volume 91 fL (79-100) Mean Corpuscular Hemoglobin 31 pg (25-35) Mean Corpuscular Hemoglobin Concent 34 g/dL (31-37) Red Cell Distribution Width 14.4 % (11.5-14.5) Platelet Count 127 x10^3/uL (140-400) Neutrophils (%) (Auto) 59 % (31-73) Lymphocytes (%) (Auto) 26 % (24-48) Monocytes (%) (Auto) 13 % (0-9) Eosinophils (%) (Auto) 2 % (0-3) Basophils (%) (Auto) 0 % (0-3) Neutrophils # (Auto) 2.7 x10^3/uL (1.8-7.7) Lymphocytes # (Auto) 1.2 x10^3/uL (1.0-4.8) Monocytes # (Auto) 0.6 x10^3/uL (0.0-1.1) Eosinophils # (Auto) 0.1 x10^3/uL (0.0-0.7) Basophils # (Auto) 0.0 x10^3/uL (0.0-0.2) Sodium Level 136 mmol/L (136-145) Potassium Level 4.1 mmol/L (3.5-5.1) Chloride Level 103 mmol/L (98-107) Carbon Dioxide Level 28 mmol/L (21-32) Anion Gap 5 (6-14) Blood Urea Nitrogen 14 mg/dL (8-26) Creatinine 0.7 mg/dL (0.7-1.3) Estimated GFR (Cockcroft-Gault) 110.2 Glucose Level 136 mg/dL (70-99) Calcium Level 8.6 mg/dL (8.5-10.1) Triglycerides Level 58 mg/dL (0-150) Cholesterol Level 86 mg/dL (0-200) LDL Cholesterol, Calculated 38 mg/dL (0-100) VLDL Cholesterol, Calculated 12 mg/dL (0-40) Non-HDL Cholesterol Calculated 50 mg/dL (0-129) HDL Cholesterol 36 mg/dL (40-60) Cholesterol/HDL Ratio 2.4 Test 12/28/18 17:18 12/28/18 20:46 12/29/18 08:08 Glucose (Fingerstick) 169 mg/dL (70-99) 172 mg/dL (70-99) 174 mg/dL (70-99) Laboratory Tests Test 12/28/18 17:18 12/28/18 20:46 12/29/18 08:08 Glucose (Fingerstick) 169 mg/dL (70-99) 172 mg/dL (70-99) 174 mg/dL (70-99) Problem List Problems Medical Problems: (1) Perforated duodenal ulcer Status: Acute (2) Pneumoperitoneum Status: Acute Assessment/Plan s/p perf ulcer repaired--stable surgically dc when medically ready HARISH MAYFIELD [employer] Dec 29, 2018 10:19
--- NOTE | 2018-12-29 10:22 | PDOC ---
PROGRESS NOTES Subjective Subjective feels ok Objective Objective Vital Signs Date Time Temp Pulse Resp B/P (MAP) Pulse Ox O2 Delivery O2 Flow Rate FiO2 12/29/18 07:00 99.1 92 18 129/79 (96) 95 Room Air 99.1 12/28/18 09:27 1.0 Intake and Output 12/29/18 07:00 Intake Total 960 ml Output Total 3220 ml Balance -2260 ml Intake Oral 960 ml Output Urine Total 3220 ml Physical Exam Abdomen: Soft, Other (ND, incision c/d/i, no erythema ) Heart: Other (irregularly irregular) Extremities: No clubbing, No cyanosis General: Alert, Oriented X3, Cooperative, No acute distress HEENT: Atraumatic Lungs: Clear to auscultation MUSCULOSKELETAL: Osteoarthritic changes both hands Neuro: Normal speech, Sensation intact Psych/Mental Status: Mental status NL, Mood NL Skin: No rashes, No breakdown Diagnosis Problem List Problems Medical Problems: (1) Perforated duodenal ulcer Status: Acute (2) Pneumoperitoneum Status: Acute Assessment Assessment IMP:Perforated duodenal ulcer- to Dominique consulted. Patient had Laparoscopy converted to open exploratory laparotomy, lysis of adhesions, nighat patch repair of duodenal ulcer. I strongly advised the patient to avoid using any NSAIDs. Hypertension Anemia Elevated LFTs plan- continue nothing by mouth. IV fluids. Recheck labs in a.m. GI consult with Dr. Hardy Jeffrey. PPI Hypokalemia-add potassium chloride to IV fluids. Atrial fibrillation- consult cardiology. Transfer to telemetry. Medications per cardiology. Constipation- start MiraLAX. PLAN:lab s good PT/ot/rehab social service consult. Plan Plan of Care Problems Medical Problems: (1) Perforated duodenal ulcer Status: Acute (2) Pneumoperitoneum Status: Acute Comment Review of Relevant I have reviewed the following items catia (where applicable) has been applied. Labs Laboratory Tests Test 12/28/18 17:18 12/28/18 20:46 12/29/18 08:08 Glucose (Fingerstick) 169 mg/dL (70-99) 172 mg/dL (70-99) 174 mg/dL (70-99) Medications Current Medications Magnesium Hydroxide (Milk Of Magnesia) 2,400 mg PRN DAILY PRN PO CONSTIPATION Last administered on 12/29/18at 09:42; Start 12/28/18 at 12:45 Pantoprazole Sodium (Protonix) 40 mg DAILYAC PO ; Start 12/30/18 at 07:30 Polyethylene Glycol (miraLAX PACKET) 17 gm PRN DAILY PRN PO CONSTIPATION; Start 12/29/18 at 09:45 Vitals/I & O Vital Sign - Last 24 Hours 12/28/18 12/28/18 12/28/18 12/28/18 11:00 15:00 19:45 20:00 Temp 98.7 98.8 98.2 98.7 98.8 98.2 Pulse 87 84 83 Resp 18 B/P (MAP) 134/78 (96) 126/82 (97) 156/90 (112) Pulse Ox 96 95 96 O2 Delivery Room Air Room Air Room Air Room Air 12/28/18 12/29/18 12/29/18 12/29/18 22:52 02:58 03:16 07:00 Temp 98.0 98.2 99.1 98.0 98.2 99.1 Pulse 93 90 92 Resp 18 18 B/P (MAP) 143/80 (101) 150/86 (107) 129/79 (96) Pulse Ox 95 96 95 O2 Delivery Room Air Room Air Room Air Room Air Intake and Output 12/28/18 12/28/18 12/29/18 15:00 23:00 07:00 Intake Total 480 ml 480 ml Output Total 1120 ml 1300 ml 800 ml Balance -640 ml -820 ml -800 ml CLRAISSA HAAS MD Dec 29, 2018 10:22
[2018-12-29 11:00] VITALS: BP 122/78
--- NOTE | 2018-12-29 14:11 | NUR ---
SS following up with discharge planning. Pt is currently on room air. PT/OT ordered. SS will await PT/OT evaluations and recommendations and will proceed accordingly with discharge planning.
[2018-12-29 15:00] VITALS: BP 125/79
--- NOTE | 2018-12-29 16:03 | NUR ---
SS following up with discharge planning. PT/OT recommended longterm unit. Pt is currently declining longterm unit at this time and is requesting home healthcare. Nurse Navigator from [facility] to meet with pt and discuss home healthcare. Pt's RN notified.
[2018-12-29] MEDS ORDERED: PANT40TA77 PO (16:11)
--- NOTE | 2018-12-29 16:13 | SNU/HH DC ---
DISCHARGE WITH HOME HEALTH DISCHARGE INFORMATION: Discharge Date: Dec 29, 2018 Final Diagnosis: Problems Medical Problems: (1) Perforated duodenal ulcer Status: Acute (2) Pneumoperitoneum Status: Acute Condition on Discharge: Stable CODE STATUS: Code Status: Full HOME HEALTH: Face to Face: I certify this patient is under my care and that I, or a nurse practitioner or physician's neurology physician assistant working with me, had a face to face encounter that meets the physician face to face encounter requirements with this patient on [12/29/18]. Medical Complications: Other (perforated ulcer duodenal) RN For Eval/Treatment: Yes Physical Therapy For: Evalulation/Treatment Home Health Aide For: Self-care HOME CHILD CARE PROVIDER For: Community Resources Pt Meets Homebound Status: Extreme weakness w/ amb. POST DISCHARGE ORDERS: Activity Instructions for Disc: Activity as tolerated Weight Bearing Status after Di: No restrictions CHECKS AFTER DISCHARGE: Checks after discharge: Check blood press - daily CERTIFICATION STATEMENT: Certification Statement: Certification Statement: Based on the above finding, I certify that this patient is confined to the home and needs intermittent prison care, physical therapy and/or speech therapy, or continues to need occupational therapy.~ This patient is under my care, and I have initiated the establishment of the plan of care.~ This patient will be followed by myself or a community physician who will periodically review the plan of care. Home Meds Active Scripts Phenazopyridine Hcl (PYRIDIUM) 200 Mg Tablet, 200 MG PO TID for dysuria for 7 Days, #21 TAB 3 Refills Prov:SPRING MACK MD 07/23/18 Reported Medications Hydrocodone/Apap 5-325 (NORCO 5-325 TABLET) 1 Each Tablet, 1 TAB PO PRN Q6HRS PRN for PAIN, #10 TAB 0 Refills LAST DOSE GIVEN: 07/23/18 Glimepiride (GLIMEPIRIDE) 1 Mg Tablet, 1 MG PO DAILY for DIABETES, TAB 07/22/18 Finasteride (PROSCAR) 5 Mg Tablet, 5 MG PO DAILY for PROSTATE, TAB 07/22/18 Tamsulosin Hcl (FLOMAX) 0.4 Mg Cap.er.24h, 0.4 MG PO DAILY, TAB 11/27/17 Aspirin (ASPIR-LOW) 81 Mg Tablet.dr, 1 TAB PO DAILY, #30 TAB 3 Refills 11/16/17 Isosorbide Mononitrate (ISOSORBIDE MONONITRATE ER) 30 Mg Tab.er.24h, 15 MG PO DAILY, TAB.SR 11/16/17 Simvastatin (SIMVASTATIN) 40 Mg Tablet, 1 TAB PO QHS, #30 TAB 5 Refills 11/16/17 Metoprolol Succinate (Metoprolol Succinate) 50 Mg Tab.er.24h, 25 MG PO, TAB.SR 11/16/17 CLARISSA HAAS MD Dec 29, 2018 16:13
--- NOTE | 2018-12-29 16:47 | NUR ---
SS following up with discharge planning. Discharge orders received for home healthcare. SS phoned and faxed discharge orders and referral to [facility], ; fax [phone]. Pt's RN notified.
--- NOTE | 2018-12-29 19:22 | PDOC ---
PROGRESS NOTES Subjective Subjective Doing well. Wants to go home Objective Objective Vital Signs Date Time Temp Pulse Resp B/P (MAP) Pulse Ox O2 Delivery O2 Flow Rate FiO2 12/29/18 15:00 98.4 105 18 125/79 (94) 95 Room Air 98.4 12/28/18 09:27 1.0 Intake and Output 12/29/18 07:00 Intake Total 960 ml Output Total 3220 ml Balance -2260 ml Intake Oral 960 ml Output Urine Total 3220 ml Physical Exam Abdomen: Soft, Other (ND, incision c/d/i, no erythema ) Heart: Other (irregularly irregular) Extremities: No clubbing, No cyanosis General: Alert, Oriented X3, No acute distress HEENT: Atraumatic Lungs: Clear to auscultation Neuro: Normal speech, Sensation intact Psych/Mental Status: Mental status NL, Mood NL Skin: No rashes, No breakdown Assessment Assessment 1. s/p open exploratory lap with a duodenal ulcer repair. post op care per Gen surgery 2. Atrial fibrillation. Post-operative. Presently in SR with sinus tachy with exertion prob from deconditioning. Plan event monitor as outpatient to evaluate AF burden. 3. Hypertension. Controlled. 4. Hyperlipidemia. statins 5. History of coronary artery disease and previous stenting. stable and chest pain free Plan Plan of Care Problems Medical Problems: (1) Perforated duodenal ulcer Status: Acute (2) Pneumoperitoneum Status: Acute Comment Review of Relevant I have reviewed the following items catia (where applicable) has been applied. Labs Laboratory Tests Test 12/28/18 20:46 12/29/18 08:08 12/29/18 12:18 Glucose (Fingerstick) 172 mg/dL (70-99) 174 mg/dL (70-99) 179 mg/dL (70-99) Medications Current Medications Pantoprazole Sodium (Protonix) 40 mg DAILYAC PO ; Start 12/30/18 at 07:30; Stop 12/30/18 at 07:30; Status DC Polyethylene Glycol (miraLAX PACKET) 17 gm PRN DAILY PRN PO CONSTIPATION; Start 12/29/18 at 09:45; Stop 12/29/18 at 18:21; Status DC Vitals/I & O Vital Sign - Last 24 Hours 7/14/19 7/14/19 7/14/19 7/15/19 19:45 20:00 22:52 02:58 Temp 98.2 98.0 98.2 98.0 Pulse 83 93 Resp 18 18 B/P (MAP) 156/90 (112) 143/80 (101) Pulse Ox 96 95 O2 Delivery Room Air Room Air Room Air Room Air 12/29/18 12/29/18 12/29/18 12/29/18 03:16 07:00 08:00 11:00 Temp 98.2 99.1 98.5 98.2 99.1 98.5 Pulse 90 92 99 Resp 18 B/P (MAP) 150/86 (107) 129/79 (96) 122/78 (93) Pulse Ox 96 95 95 O2 Delivery Room Air Room Air Room Air Room Air 12/29/18 15:00 Temp 98.4 98.4 Pulse 105 Resp 18 B/P (MAP) 125/79 (94) Pulse Ox 95 O2 Delivery Room Air Intake and Output 12/28/18 12/28/18 12/29/18 15:00 23:00 07:00 Intake Total 480 ml 480 ml Output Total 1120 ml 1300 ml 800 ml Balance -640 ml -820 ml -800 ml ISIAH BEDOLLA MD Dec 29, 2018 19:22
[2018-12-30] MEDS ORDERED: PANTOPRAZOLE 40 MG TABLET.DR. PO SCH (07:30)
== END 2018-12-29 18:20 | disposition home health service (06) | DRG 328 ==
LOC: 4 NORTH 07:38 → 2 SOUTH 12-27 10:27
PROVIDERS: ADMIT Internal Medicine; ATTEND Internal Medicine
PROC: 0DU907Z Supplement Duodenum with Autologous Tissue Substitute, Open Approach (ICD-10-PCS; 2018-12-25)
PROC: 0DN90ZZ Release Duodenum, Open Approach (ICD-10-PCS; 2018-12-25)
PROC: 0DJ04ZZ Inspection of Upper Intestinal Tract, Percutaneous Endoscopic Approach (ICD-10-PCS; principal; 2018-12-25 09:00)
DX: K26.5 Chronic or unspecified duodenal ulcer with perforation (principal); I10 Essential (primary) hypertension; D64.9 Anemia, unspecified; D69.6 Thrombocytopenia, unspecified; E03.9 Hypothyroidism, unspecified; E11.9 Type 2 diabetes mellitus without complications; E78.5 Hyperlipidemia, unspecified; E87.6 Hypokalemia; G35 Multiple sclerosis; I25.10 Atherosclerotic heart disease of native coronary artery without angina pectoris; I48.91 Unspecified atrial fibrillation; K59.00 Constipation, unspecified; M19.90 Unspecified osteoarthritis, unspecified site; K66.0 Peritoneal adhesions (postprocedural) (postinfection); K66.8 Other specified disorders of peritoneum; N40.0 Benign prostatic hyperplasia without lower urinary tract symptoms; T39.395A Adverse effect of other nonsteroidal anti-inflammatory drugs [NSAID], initial encounter; Z53.31 Laparoscopic surgical procedure converted to open procedure; Z82.49 Family history of ischemic heart disease and other diseases of the circulatory system; Z90.49 Acquired absence of other specified parts of digestive tract; Z95.5 Presence of coronary angioplasty implant and graft; Z87.11 Personal history of peptic ulcer disease; Z88.0 Allergy status to penicillin; Y92.89 Other specified places as the place of occurrence of the external cause
CPT/HCPCS: 36415; 74018; 80048; 80053; 80061; 82962; 85025; 85027; 93005; A7015; C9113; J0330; J0690; J0694; J1100; J1170; J1650; J2001; J2270; J2405; J2704; J2710; J3010; J3480; J3490; J7030; J7120; 97116

== ENCOUNTER → 2019-02-25 | Day surgery (SDC) | payer MEDICARE, OTHER ==
[~2019-02-25] MED LIST changes: +HYDROmorphone 2 MG/ML VIAL IV PRN; +IV RINGERS,LACTATED 1000ML 1,000 ML IV SCH; +LIDOCAINE 1% PF 2 ML VIAL. ID PRN; +MORPHINE SULFATE 2 MG/ML VIAL. IV PRN; +ONDANSETRON PF 4 MG/2 ML VIAL. IV PRN; +PANT40TA77 PO; +PROCHLORPERAZINE 10 MG/2 ML VIAL. IV PRN; +PROPOFOL 20 ML IV ONE; +fentaNYL PF VIAL 100 MCG/2 ML VIAL IV PRN
--- NOTE | 2019-02-25 08:36 | CONS ---
DATE OF CONSULTATION: 02/25/2019 REFERRING PHYSICIAN: Gladys Gonzalez. REASON FOR CONSULTATION: Followup of perforated ulcer. HISTORY OF PRESENT ILLNESS: A 73-year-old male whose past medical history is significant for coronary artery disease, hypertension, hyperlipidemia, diabetes, AFib, hypothyroidism, status post cardiac stenting, status post cholecystectomy, resection of Meckel's diverticulum was seen after a perforated ulcer requiring oversew EGD to confirm healing and rule out malignancy is recommended. The patient's weight and appetite are stable. He has been avoiding NSAIDs since and is in better shape today. PAST MEDICAL HISTORY: Perforated ulcers, coronary artery disease, hypertension, hyperlipidemia, hypothyroidism. PAST SURGICAL HISTORY: Status post cholecystectomy, status post cardiac stent, status post lysis of adhesions, Meckel's diverticulectomy. ALLERGIES: TO PENICILLIN. MEDICATIONS: Include isosorbide, metoprolol, pantoprazole, simvastatin, and tamsulosin. SOCIAL HISTORY: Nonsmoker, nondrinker. He is retired. FAMILY HISTORY: Noncontributory. REVIEW OF SYSTEMS: Per records. PHYSICAL EXAMINATION: GENERAL: Reveals a well-nourished, well-developed male who is alert, cooperative, in no acute distress. VITAL SIGNS: Temperature 98.3, pulse 47, respirations 20. HEENT: Reveals normocephalic, atraumatic head. Pupils and extraocular muscles are not tested. Sclerae anicteric. NECK: Supple. LUNGS: Clear. CARDIOVASCULAR: Reveals an S1, S2 without S3, S4 or appreciable murmur. ABDOMEN: Reveals a soft abdomen, normal bowel sounds, without appreciable hepatosplenomegaly. EXTREMITIES: Reveals no cyanosis, clubbing, or edema. IMPRESSION: History of perforated ulcer, status post oversewn EGD to confirm healing as well as assess for stricture is recommended. Risks and benefits were discussed with the patient including risk of hemorrhage and perforation and is willing to proceed. OZZY AGUSTIN MD DR: FABRICE/claudine JOB#: [id number] / [id number]
[2019-02-25 08:55] VITALS: BP 132/78
== END ==
LOC: ENDOS 06:48
PROVIDERS: ATTEND Internal Medicine Gastroenterology
DX: K29.50 Unspecified chronic gastritis without bleeding (principal); K26.5 Chronic or unspecified duodenal ulcer with perforation; I10 Essential (primary) hypertension; I25.10 Atherosclerotic heart disease of native coronary artery without angina pectoris; E78.5 Hyperlipidemia, unspecified; E11.9 Type 2 diabetes mellitus without complications; I48.91 Unspecified atrial fibrillation; E03.9 Hypothyroidism, unspecified; Z88.0 Allergy status to penicillin; Z79.899 Other long term (current) drug therapy; Z95.5 Presence of coronary angioplasty implant and graft; Z90.49 Acquired absence of other specified parts of digestive tract; Z98.890 Other specified postprocedural states
CPT/HCPCS: 43235; J2704

== ENCOUNTER → 2021-01-27 | Outpatient (CLI) | payer MEDICARE, OTHER ==
[2019-02-25 08:55] VITALS: BP 132/78
[~2021-01-27] MED LIST changes: -GLIM1TAB2 PO; +GLIM1TAB7 PO; -HYDROmorphone 2 MG/ML VIAL IV PRN; -ISOS30TA4 PO; +ISOS30TA68 PO; -IV RINGERS,LACTATED 1000ML 1,000 ML IV SCH; -LIDOCAINE 1% PF 2 ML VIAL. ID PRN; -MORPHINE SULFATE 2 MG/ML VIAL. IV PRN; -ONDANSETRON PF 4 MG/2 ML VIAL. IV PRN; -PROCHLORPERAZINE 10 MG/2 ML VIAL. IV PRN; -PROPOFOL 20 ML IV ONE; +REGADENOSON 0.4 MG/5 ML DISP.SYRIN. IV ONE; +SIMV40TA18 PO; -SIMV40TA3 PO; -fentaNYL PF VIAL 100 MCG/2 ML VIAL IV PRN
--- NOTE | 2021-01-27 12:55 | RAD ---
MR#: [id number] Date of Study: 01/27/2021 Ordering Physician: ISIAH BEDOLLA, Referring Physician: JUDITH SINGH Tech: POLINA Villavicencio ARRT (R) (N) APPROVED REPORT Test Type: Pharmacological Stress Nurse/Tech: Meche Munson RN Test Indications: A-fib Cardiac History: Hypertension, Diabetes,stent 2009 Medications: See Electronic Medical Record Medical History: See Electronic Medical Record Resting ECG: Sinus Arrhythmia with PVCs Resting Heart Rate: 68 bpm Resting Blood Pressure: 129/73mmHg Pretest Chest Pain: No chest pain Nurse/Tech Notes S1,S2 and lungs diminished in the bases. Consent: The procedure was explained to the patient in lay terms. Informed consent was witnessed. Abelino eout was entered into [employer]. History and Stress Test performed by RT Janay (Jemma) (N) Pharm. Details Pharmacologic stress testing was performed using 0.4mg per 5ml of regadenoson given intravenously ove r 7-10 seconds. Stress Symptoms Nausea POST EXERCISE Reason for Termination: Infusion complete Target HR: No Max HR: 97 bpm 79% of Maximum Predicted HR: 122 bpm Max Blood Pressure: 132/69mmHg Blood Pressure response to exercise: Normal blood pressure response during stress. Heart Rate response to exercise: WNL Chest Pain: No. Arrhythmia: Yes. PVCs ST Change: No. INTERPRETATION Stress EKG Conclusion: The resting EKG shows a sinus arrhythmia with nonspecific ST segment changes. The stress EKG shows no significant changes from baseline. No EKG evidence of stress-induced ischemia. Imaging Protocol IMAGE PROTOCOL: Rest Tc-99m/stress Tc-99m 1 day Rest: Stress: Viability: Radiopharm.Tc99m [id number] Sestamibi Dose9.5mCi 30mCi Img Date 01/27/2021 01/27/2021 Inj-Img [id number]. 60min. Rest Admin Site:IV - Right ForearmAdministrator:POLINA Villavicencio ARRT (R)(N) Stress Admin Site: IV - Right ForearmAdministrator: Mitul Garcia, RT (R)(N) STRESS DATA End Diast. Vol.84.0mlAv. Heart Rate79.0bpm End Syst. Vol.17.0mlCO Index BSA0.0L/min Myocardial Ibfm159.0gEject. Qjqfzdvz66.0% Stress Rates Pk. Fill Rate4.18EDV/secLVtime Pk. Fill 211.52msec Pk. Empty Rate5.07ESV/secLVtime Pk. Bajgu334.60msec /3 Pk. Fill1.51EDV/sec Stress Scores Regional WT0.00Summed WT0.00 Regional WM0.00Summed WM0.00 LV Perfusion The stress scans show no significant defects. The rest scans show no significant defects. Nuclear imaging is negative for reversible ischemia or an infarct. Wall Motion Left ventricular systolic function is normal with an ejection fraction of greater than 70%. LV Perf. Quant 17 Seg. SSS0.00 17 Seg. SRS0.00 17 Seg. SDS0.00 Stress Defect Extent (% LAD)0.00Rest Defect Extent (% LAD)0.00Rev. Defect Extent (% LAD)0.00 Stress Defect Extent (% LCX) 0.00Rest Defect Extent (% LCX)0.00Rev. Defect Extent (% LCX)0.00 Stress Defect Extent (% RCA)0.00Rest Defect Extent (% RCA)0.00Rev. Defect Extent (% RCA)0.00 Stress Defect Extent (% JAZMIN)0.00Rest Defect Extent (% JAZMIN)0.00Rev. Defect Extent (% JAZMIN)0.00 Conclusion 1. No EKG evidence of stress-induced ischemia. 2. Nuclear imaging shows no reversible ischemia or infarct. 3. Normal left ventricular systolic function with an ejection fraction of greater than 70%. 4. Low risk Lexiscan nuclear stress test. Signed by : Isaac Silverman MD Electronically Approved : 01/27/2021 12:54:58
== END ==
LOC: NM 07:56
PROVIDERS: ATTEND Internal Medicine Cardiovascular Disease
DX: I48.0 Paroxysmal atrial fibrillation (principal); I10 Essential (primary) hypertension; E11.8 Type 2 diabetes mellitus with unspecified complications
CPT/HCPCS: 78452; 93017; A9500; J2785

== ENCOUNTER → 2021-02-13 | Outpatient (CLI) | payer MEDICARE, OTHER ==
[2019-02-25 08:55] VITALS: BP 132/78
[~2021-02-13] MED LIST changes: +ASCO100T4 PO; +GLIM2TAB7 PO; +LEVO25TA4 PO; +MELO7.5T29 PO; +METO-239 PO; +OXYC5CAP PO; +PANT20TA2 PO; -REGADENOSON 0.4 MG/5 ML DISP.SYRIN. IV ONE; +RUTI1TAB PO; +TRAM50TA PO; +WARF-31 PO; +WARF4TAB64 PO
--- NOTE | 2021-02-13 09:19 | EKG ---
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
[2021-02-13 09:25] LABS: BASO % 1 % (0-3); EOS # 0.1 x10^3/uL (0.0-0.7); EOS % 2 % (0-3); HEMATOCRIT 41.7 % (39.0-53.0); HEMOGLOBIN 14.7 g/dL (13.0-17.5); LYMPH # 1.9 x10^3/uL (1.0-4.8); LYMPH % 36 % (24-48); MEAN CORPUSCULAR HEMOGLOBIN 32 pg (25-35); MEAN CORPUSCULAR HGB CONC 35 g/dL (31-37); MEAN CORPUSCULAR VOLUME 91 fL (79-100); MONO # 0.4 x10^3/uL (0.0-1.1); MONO % 8 % (0-9); NEUT # 2.7 x10^3/uL (1.8-7.7); NEUT % 53 % (31-73); PLATELET COUNT 173 x10^3/uL (140-400); RED BLOOD COUNT 4.56 x10^6/uL (4.30-5.70); RED CELL DISTRIBUTION WIDTH 13.3 % (11.5-14.5); WHITE BLOOD COUNT 5.2 x10^3/uL (4.0-11.0)
[2021-02-13 09:34] LABS: CALCIUM 9.3 mg/dL (8.5-10.1); CREATININE 0.9 mg/dL (0.7-1.3); POTASSIUM 3.9 mmol/L (3.5-5.1)
[2021-02-13 09:39] LABS: PROTHROMBIN TIME PATIENT 13.4 SEC (11.7-14.0)
--- NOTE | 2021-02-13 15:51 | RAD ---
EXAM: PA and Lateral Views of the Chest DATE: 02/13/2021 9:32 AM INDICATION: Reason: PRE OP EVALUATION FOR RIGHT KNEE SURGERY / Spl. Instructions: / History: COMPARISON: chest radiograph 12/19/2017, CT 09/29/2020 FINDINGS: The heart is not enlarged. Mediastinal and hilar contours are normal. No focal parenchymal airspace opacity. No pleural effusion or pneumothorax. Height loss of possibly T10 vertebral body, age-indeterminate compression fracture is stable to 2020 IMPRESSION: 1. No radiographic evidence for acute cardiopulmonary process. Electronically signed by: Marshall Hills MD (02/13/2021 3:49 PM) [id number]
[2021-02-14 01:12] LABS: HEMOGLOBIN A1C 6.9 % (4.8-5.6)
== END ==
LOC: SURGPAT 07:42
PROVIDERS: ATTEND Orthopaedic Surgery
DX: Z01.818 Encounter for other preprocedural examination (principal); M17.11 Unilateral primary osteoarthritis, right knee; Z20.822 Contact with and (suspected) exposure to COVID-19
CPT/HCPCS: 36415; 71046; 80048; 82040; 82306; 83036; 85025; 85610; 85651; 85730; 87641; 93005